=== PATIENT | male | born 1960 | race Caucasian/White ===

== ENCOUNTER → 2020-03-01 | Day surgery (SDC) | payer MEDICARE ==
[~2020-03-01] MED LIST: ACETAMINOPHEN TAB 325 MG TAB ONE; ALPRAZolam 0.25 MG TAB PO PRN; ASPIRIN 325 MG TAB PO STA; ASPIRIN 81 MG ONE; ASPIRIN 81 MG PO ONE; IOPAMIDOL-250 100ML BTL INTRAARTER ONE; IOPAMIDOL-250 50ML BTL INTRAARTER ONE; LIDOCAINE 1% INJ 10MG/ML (20 ML MDV) SQ ONE; MIDAZOLAM 2 MG/2 ML VIAL IVP ONE; SODIUM CHLORIDE 0.9% 1,000 ML IV ONE; SODIUM CHLORIDE 0.9% 1,000 ML IV SCH; SODIUM CHLORIDE 0.9% 1,000 ML in EMPTY BAG 1 BAG IV ONE; ZOLPIDEM 5 MG TAB PO PRN
[2020-03-01 09:45] VITALS: RESP 16
[2020-03-01 09:46] VITALS: TEMP 98.1
--- NOTE | 2020-03-01 11:27 | IR ---
EXAMINATION TYPE: IR angio abdominal w runoff DATE OF EXAM: 03/01/2020 CLINICAL HISTORY: Right foot ulcer. TECHNIQUE: Fluoroscopy. COMPARISON: None. FINDINGS: Fluoroscopic guidance was provided during , angiogram with runoff procedure performed by Cyndee Heller. A total of 2.6 minute of fluoroscopic time was utilized during the procedure and 126 spot i mages are acquired. Images show right-sided groin access with angiogram and runoff. Please refer to p emely note for further details if necessary. IMPRESSION: As Above.
--- NOTE | 2020-03-01 12:01 | AN ---
ANGIOGRAPHY REPORT AORTOGRAM WITH RUNOFF: DATE OF SERVICE: 03/01/2020 PERFORMING PHYSICIAN: Shaun Heller MD. PROCEDURE PERFORMED: 1. An abdominal aortogram. 2. Bilateral lower extremities runoff. 3. Selective right common femoral artery angiogram. INDICATION: This is a 59-year-old gentleman with history of peripheral arterial disease and prior angioplasty was performed on the right leg with unknown details with the only details known. The right iliac stenting was struggling with critical limb ischemia of the right leg. He was seen in the office recently where he was referred by Dr. Timmons and he does have a nonhealing ulcer involving the right foot. Because of that, an aortogram with runoff was advised. APPROACH: Right common femoral artery. COMPLICATION: None. LEVEL OF SEDATION: Moderate with sedation length of 18 minutes. PROCEDURE DESCRIPTION: After obtaining an informed consent, the patient was brought to the cardiac clinical lab assistant. The right common femoral artery was cannulated using micropuncture technique under ultrasound guidance, the micropuncture wire passed easily, then I placed a 5-Turkmen sheath. An abdominal aortogram and bilateral lower extremities runoff performed using 5-Turkmen pigtail catheter which was initially placed at the level of the renal arteries then it was pulled into above the bifurcation of the aorta to right and left common iliac arteries. The procedure was completed without any complication. SELECTIVE PERIPHERAL ANGIOGRAM: 1. The aorta appeared to be angiographically normal. 2. Renal arteries: The right and left renal arteries are angiographically normal. 3. Common iliac arteries: The right common iliac artery is stented and the stent is patent and the left common iliac artery appeared to be angiographically normal. 4. Internal iliac arteries: Both are patent. 5. External iliac arteries: Both are patent. 6. Common femoral arteries: Both appeared to be normal. 7. Profunda: Both profunda are patent. 8. SFA: The right SFA is occluded from the ostium all the way to the popliteal. The left SFA appeared to have mild disease only. 9. Below the knee: There are 3 vessel runoff below the knee bilaterally. CONCLUSION: 1. Patent stent in the right common iliac artery. 2. Occluded right SFA on long segment extends from the ostium all the way to the popliteal. 3. Three vessel runoff below the knee bilaterally. POSTPROCEDURE MANAGEMENT: OUTBOUND SALES EXECUTIVE of the right SFA. MMODL / IJN: [id number] /
[2020-03-01 16:37] VITALS: BP 135/60; PULSE 78
== END ==
LOC: CATHCVL 09:24
PROVIDERS: ATTEND Internal Medicine Interventional Cardiology
DX: I70.235 Atherosclerosis of native arteries of right leg with ulceration of other part of foot (principal); I70.213 Atherosclerosis of native arteries of extremities with intermittent claudication, bilateral legs; I10 Essential (primary) hypertension; E78.5 Hyperlipidemia, unspecified; F17.210 Nicotine dependence, cigarettes, uncomplicated; Z79.82 Long term (current) use of aspirin; Z79.899 Other long term (current) drug therapy
CPT/HCPCS: 36200; 75625; 75716; 76937; C1769 ×5; C1894; J2250; J2001; Q9966 ×2

== ENCOUNTER → 2020-03-16 | Day surgery (SDC) | payer MEDICARE ==
[2020-03-14 15:06] VITALS: BMI 21.5
[~2020-03-16] MED LIST changes: -ACETAMINOPHEN TAB 325 MG TAB ONE; -ASPIRIN 81 MG ONE; -ASPIRIN 81 MG PO ONE; -IOPAMIDOL-250 100ML BTL INTRAARTER ONE; -IOPAMIDOL-250 50ML BTL INTRAARTER ONE; -LIDOCAINE 1% INJ 10MG/ML (20 ML MDV) SQ ONE; -MIDAZOLAM 2 MG/2 ML VIAL IVP ONE; -SODIUM CHLORIDE 0.9% 1,000 ML IV ONE; -SODIUM CHLORIDE 0.9% 1,000 ML IV SCH
== END ==
LOC: CATHCVL 11:53
PROVIDERS: ATTEND Internal Medicine Interventional Cardiology
DX: I70.211 Atherosclerosis of native arteries of extremities with intermittent claudication, right leg (principal); Z53.9 Procedure and treatment not carried out, unspecified reason

== ENCOUNTER 2020-03-23 10:09 | Day surgery (SDC) | payer MEDICARE ==
[2020-03-21 11:30] VITALS: BMI 22.3
[~2020-03-23 10:09] MED LIST changes: +ASPIRIN 325 MG TAB PO ONE; -ASPIRIN 325 MG TAB PO STA; -ZOLPIDEM 5 MG TAB PO PRN
[2020-03-23] MEDS ORDERED: SODIUM CHLORIDE 0.9% 1,000 ML IV ONE (10:36)
[2020-03-23 10:46] LABS: Basophils % (A) 1 %; Eosinophils % (A) 1 %; HCT 36.9 % (39.0-53.0); HGB 12.2 gm/dL (13.0-17.5); Lymphocytes % (A) 17 %; MCH 29.8 pg (25.0-35.0); MCV 90.3 fL (80.0-100.0); Mean Platelet Volume 6.9; Monocytes # (A) 0.4 k/uL (0-1.0); Monocytes % (A) 6 %; Neutrophils # (A) 4.6 k/uL (1.3-7.7); Neutrophils % (A) 75 %; Platelet Count 283 k/uL (150-450); RBC 4.09 m/uL (4.30-5.90); RDW 13.3 % (11.5-15.5); WBC 6.2 k/uL (3.8-10.6)
[2020-03-23] MEDS ORDERED: SODIUM CHLORIDE 0.9% 500 ML 500 ML with niCARdipine 6.25 MG, NITROGLYCERIN-D5W PMX 0.05... IV ONE ×8 (11:00→13:51)
[2020-03-23] MEDS ORDERED: MIDAZOLAM 2 MG/2 ML VIAL IV ONE (12:03)
[2020-03-23] MEDS ORDERED: HYDROmorphone 0.5 MG/0.5 ML SYRINGE IVP ONE ×2 (12:03→12:28)
[2020-03-23] MEDS ORDERED: LIDOCAINE 1% INJ 10MG/ML (20 ML MDV) SQ ONE (12:04)
[2020-03-23] MEDS: HEPARIN SODIUM 1,000 UN/ML (10ML VL) IV ONE ×2 (12:10→13:01)
[2020-03-23] MEDS: MIDAZOLAM 2 MG/2 ML VIAL IV ONE ×2 (12:27→12:37)
[2020-03-23] MEDS: fentaNYL (PF) 50 MCG/ML 2 ML AMP IV ONE ×2 (12:58→13:41)
[2020-03-23] MEDS: HYDROmorphone 1 MG/ML 1 ML SYRINGE IVP ONE ×2 (13:47→14:40)
[2020-03-23] MEDS ORDERED: ETODOLAC 400 MG TAB PO PRN (14:57)
[2020-03-23] MEDS ORDERED: ALPRAZolam 0.5 MG TAB PO PRN (14:57)
[2020-03-23] MEDS ORDERED: SODIUM CHLORIDE 0.9% 1,000 ML in EMPTY BAG 1 BAG IV SCH (15:00)
[2020-03-23] MEDS ORDERED: INTERFERON BETA 30 MCG/0.5 ML SQ SCH (15:00)
[2020-03-23] MEDS ORDERED: CLOPIDOGREL 75 MG TAB PO ONE (15:03)
--- NOTE | 2020-03-23 16:35 | LTR ---
March 23, 2020 To: Dr. Timmons Regarding: Ras Rowland (date of 62) [address] Dr. Timmons, MrClare Rowland underwent today successful balloon angioplasty of the right femoral artery and right popliteal with an excellent angiographic result and without any complication. I want to thank you for allowing me to participate in his care. Please do not hesitate to call if any question or concern. Sincerely, Shaun Heller M.D. KB / VERÓNICA: [id number] /
[2020-03-23] MEDS ORDERED: ONDANSETRON 4 MG/2 ML VIAL IVP PRN (17:55)
[2020-03-23] MEDS: GABAPENTIN 300 MG CAP PO SCH ×2 (19:01→19:58)
[2020-03-23] MEDS: BACLOFEN 10 MG TAB PO SCH ×2 (19:01→19:58)
[2020-03-23 19:56] VITALS: RESP 18
--- NOTE | 2020-03-23 20:35 | PCN ---
PROCEDURE NOTE PERCUTANEOUS PERIPHERAL INTERVENTION: DATE OF SERVICE: 03/23/2020 PERFORMING PHYSICIAN: Shaun Heller M.D. PROCEDURES PERFORMED: 1. Atherectomy of the right SFA and right popliteal using the orbital atherectomy device from [employer]. 2. Intravascular ultrasound (IVUS) of the right SFA and right popliteal and right common femoral artery. 3. Successful stenting of the proximal right SFA using a 7.0 x 60 mm Zilver PTX drug- coated stent with excellent angiographic results. 4. Successful balloon angioplasty of the right SFA in the mid and distal portions using a 6 x 250 mm AngioSculpt balloon with an excellent angiographic result. 5. Successful deployment of the In.Pact device in the right popliteal. 6. Angiogram of the right SFA and right popliteal as well as right anterior tibial artery and right common iliac artery and left common femoral artery. INDICATION: This is a very pleasant 59-year-old gentleman with history of multiple sclerosis as well as history of peripheral arterial disease who underwent angioplasty of the right iliac artery as well as right SFA in the past. Recently he was experiencing severe right leg pain and also evidence of critical limb ischemia with nonhealing ulcers involving the right foot. He underwent an angiogram which revealed occluded right SFA and right popliteal on long segments. He was brought today to undergo an intervention. APPROACH: Left common femoral artery as well as right anterior tibial artery. COMPLICATIONS: None. LEVEL OF SEDATION: Moderate, with sedation length of 169 minutes. PROCEDURE DESCRIPTION: After obtaining informed consent, the patient was brought to the cardiac stores laborer. Initially I accessed the left common femoral artery and I placed a 6-Moldovan 70 cm Raabe sheath. After that I was able to get the RIM catheter up and over, and then I was able to advance initially an 0.[address] the way to the right profunda. I attempted to advance the sheath to go up and over the 0.035 wire and over the 5-Moldovan RIM, but the sheath would not make the turn. I did exchange my sheath for an Steven sheath, and in spite of that I was unable to get the sheath to go up and over. So I ended up leaving the sheath in the left common femoral artery, but I was able to get up and over the 5-Moldovan 0.035 CXI catheter to be placed at the right common femoral artery to use it for angiogram and injection only. Subsequently I accessed the right anterior tibial artery using micropuncture technique under ultrasound guidance, and I placed a slender 5/6-Moldovan sheath there. After that I did start continuous infusion of cocktail consisting of heparin as well as verapamil as well as nitroglycerin. Using an 0.018 ventura-tipped Glidewire and an 0.018 Astato wire with the back-up support of an 0.018 CXI and then an 0.018 Quick Cross catheter, I was able to cross the chronic total occlusion in the right popliteal and right SFA. The wire was advanced all the way to the right common femoral artery. Subsequently the catheter was advanced all the way to the right common femoral artery. I did inject through the catheter to prove that I was in the true lumen. Subsequently I placed an 0.014 wire through the 0.018 CXI catheter, and the 0.014 wire was a Viper wire which was advanced all the way to the aorta. I did intravascular ultrasound (IVUS) of the right common femoral artery and right SFA and right popliteal to prove that I was in the true lumen all the way. After that I did an atherectomy of the right SFA and the right popliteal using the orbital atherectomy device from [employer]. I did use a 1.5 mm solid kasey. After that I did balloon angioplasty, initially using a 5 mm balloon. After that I used a 6 mm Chocolate balloon. The following angiogram showed two areas of concern, the first one in the very ostial/proximal right SFA and the second one by the distal cap by the right popliteal. The rest of the areas in the SFA and popliteal looked good with balloon angioplasty. Because of that I decided to stent the ostial/proximal right SFA and do balloon angioplasty of the rest of the SFA and popliteal. I deployed a 7 x 60 mm Zilver PTX drug-coated stent in the ostial/proximal SFA, where the stent was positioned under fluoroscopic guidance and deployed under fluoroscopic guidance. The stent was post-dilated using a 6 mm balloon. In the mid SFA and the proximal right popliteal I did balloon angioplasty using an In.Pact drug-coated balloon where the balloon was inflated under 5 atmospheres for 3 minutes. The following angiogram showed excellent angiographic results. At the distal cap, injection from the sheath in the right anterior tibial artery showed what seemed to be flow-limiting dissection. I was able to tackle that using the In.Pact device with deployment of 4 clips. I post-dilated that using a 5 mm balloon with the following angiogram showing great angiographic results. Because I struggled going up and over from the left groin to the right groin, I wanted to check the stent in the right iliac artery. I did an angiogram with injection from the sheath in the left groin, and that showed that the stent is open and the stent seemed to be slightly undersized. The patient does have good femoral pulse on the right side. I decided to stop at this point and watch his symptoms. I did exchange the long sheath for a short sheath at the left groin using an 0.035 Glidewire. Then I did pull the pedal sheath. The procedure was completed without any complication. POST-PROCEDURE MANAGEMENT: 1. Dual anti-platelet therapy. 2. Surveillance duplex ultrasound study. 3. Follow up with the patient. MMCHELSI / KIRSTIEN: [id number] /
[2020-03-23] MEDS ORDERED: PRAVASTATIN SODIUM 40 MG TAB PO SCH (21:00)
[2020-03-23] MEDS: Acetaminophen-Codeine 300-30mg TAB PO PRN (21:50)
[2020-03-24] MEDS: GABAPENTIN 300 MG CAP PO SCH ×3 (02:42→14:49)
[2020-03-24] MEDS: Acetaminophen-Codeine 300-30mg TAB PO PRN ×2 (08:23→14:49)
[2020-03-24] MEDS: BACLOFEN 10 MG TAB PO SCH ×2 (08:23→14:50)
[2020-03-24 09:00] LABS: Basophils % (A) 0 %; Eosinophils % (A) 0 %; HCT 37.7 % (39.0-53.0); HGB 12.1 gm/dL (13.0-17.5); Lymphocytes # (A) 0.7 k/uL (1.0-4.8); Lymphocytes % (A) 5 %; MCH 29.8 pg (25.0-35.0); MCHC 32.1 g/dL (31.0-37.0); MCV 92.8 fL (80.0-100.0); Mean Platelet Volume 6.7; Monocytes # (A) 0.6 k/uL (0-1.0); Monocytes % (A) 4 %; Neutrophils # (A) 12.3 k/uL (1.3-7.7); Neutrophils % (A) 89 %; Platelet Count 273 k/uL (150-450); RBC 4.06 m/uL (4.30-5.90); WBC 13.8 k/uL (3.8-10.6)
[2020-03-24] MEDS ORDERED: hydroCHLOROthiazide 25 MG TAB PO SCH (09:00)
[2020-03-24] MEDS ORDERED: CLOPIDOGREL 75 MG TAB PO SCH (09:00)
[2020-03-24] MEDS ORDERED: MULTIVITAMINS, THERA 1 EACH TAB PO SCH (09:00)
[2020-03-24] MEDS ORDERED: ASPIRIN 81 MG PO SCH (09:00)
[2020-03-24] MEDS ORDERED: lisinopriL 5 MG TAB PO SCH (09:00)
[2020-03-24] MEDS ORDERED: FERROUS SULFATE 325 MG TAB PO SCH (09:00)
[2020-03-24 09:49] LABS: African American GFR (CKD) >90 (>60 ml/min/1.73 sqM); Anion Gap 11 mmol/L; Blood Urea Nitrogen 13 mg/dL (9-20); Calcium 9.6 mg/dL (8.4-10.2); Carbon Dioxide 26 mmol/L (22-30); Chloride 100 mmol/L (98-107); Glucose 107 mg/dL (74-99); Non-African American GFR(CKD) >90 (>60 ml/min/1.73 sqM); Potassium 3.6 mmol/L (3.5-5.1); Sodium 137 mmol/L (137-145)
[2020-03-24 10:20] VITALS: TEMP 98.1
[2020-03-24] MEDS ORDERED: COLLAGENASE 250 UNIT/GM OINTMENT 30 GM TUBE TOPICAL SCH (12:00)
--- NOTE | 2020-03-24 12:05 | P.CONS ---
History of Present Illness - Reason for Consult Consult date: 03/24/20 wound care - History of Present Illness This is a 59-year-old patient being seen [facility] [address] for nonhealing ulcerations to the right medial leg and right dorsal lateral foot. Patient states that the ulcerations have been there for a few weeks. He recently underwent a PTCA of the right femoral and right popliteal arteries. Patient has been seen by wound care at [facility] in the past. Due to a nonhealing ulceration to the right anterior leg. 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 Patient utilizes a walker. he is former smoker quit approximately 50 years ago. Review of Systems Review Of Systems: Constitutional: No fever, no chills, no night sweats. No weight change. No weakness, fatigue or lethargy. No daytime sleepiness. Integumentary:reports wounds, no lesions. No rash or pruritus. No unusual bruising. No change in hair or nails. Past Medical History Past Medical History: GERD/Reflux, Hyperlipidemia, Hypertension, Skin Disorder Additional Past Medical History / Comment(s): SEE DR. VICTOR MANUEL Kramer & P. PATIENT STATES HE HAS MULTIPLE OPEN SORES ON RIGHT LEG/FOOT, HAS PAIN IN RIGHT LEG AND LEFT FOOT, SWELLING IN LEFT FOOT (HAS WRAPPED IT). HAS HAD TREATMENT AT [facility] FOR RIGHT LEG WOUND IN THE PAST. Muscular Sclerosis, right leg paralyzed knee down, USES WALKER. History of Any Multi-Drug Resistant Organisms: None Reported Past Surgical History: Tonsillectomy Additional Past Surgical History / Comment(s): right leg angioplasty. (L) shoulder surgery, collar bone surgery. aortogram w/runoff 03/01/20 Past Anesthesia/Blood Transfusion Reactions: No Reported Reaction Smoking Status: Former smoker - Past Family History Mother Family Medical History: Congestive Heart Failure (CHF), COPD, Diabetes Mellitus Father Additional Family Medical History / Comment(s): pancreatitis Medications and Allergies Home Medications Medication Instructions Recorded Confirmed Type ALPRAZolam [Xanax] 0.5 mg PO BID PRN 02/19/16 03/23/20 History Aspirin EC [Ecotrin Low Dose] 81 mg PO DAILY 02/19/16 03/23/20 History Baclofen 10 mg PO TID 02/19/16 03/23/20 History Diclofenac Sodium [Voltaren] 75 mg PO BID PRN 02/19/16 03/23/20 History Ferrous Sulfate [Feosol] 325 mg PO DAILY 02/19/16 03/21/20 History Gabapentin [Neurontin] 600 mg PO 5XD 02/19/16 03/23/20 History Multivitamins, Thera [Multivitamin 1 tab PO DAILY 02/19/16 03/21/20 History (formulary)] Pravastatin Sodium [Pravachol] 40 mg PO HS 02/19/16 03/23/20 History hydroCHLOROthiazide 25 mg PO QAM 02/19/16 03/23/20 History lisinopriL [Zestril] 5 mg PO QAM 02/19/16 03/23/20 History Interferon Beta-1A [Avonex 30 MCG 1 dose SQ MOWEFR 02/25/20 03/23/20 History Pen] Clopidogrel [Plavix] 75 mg PO DAILY #90 tab 03/24/20 Rx Allergies Allergy/AdvReac Type Severity Reaction Status Date / Time Penicillins Allergy Unknown Verified 03/23/20 10:48 Childhood Sulfa (Sulfonamide AdvReac Rash/Hives Verified 03/23/20 10:48 Antibiotics) Physical Exam Vitals: Vital Signs Temp Pulse Resp BP BP Pulse Ox 03/24/20 08:00 98.1 F 110 H 18 144/76 96 03/24/20 03:54 98.6 F 79 17 145/77 96 03/24/20 00:00 98.0 F 124 H 16 134/84 96 03/23/20 21:53 133/62 03/23/20 21:38 136/76 03/23/20 21:31 123 H 115/93 03/23/20 21:29 123 H 132/71 03/23/20 21:26 124/69 03/23/20 20:00 97.9 F 18 144/64 155/80 95 03/23/20 19:54 97.7 F 18 138/59 96 03/23/20 18:43 20 150/61 136/81 03/23/20 17:43 18 164/71 163/86 03/23/20 17:30 20 03/23/20 16:43 12 161/71 133/77 03/23/20 16:13 10 L 143/63 142/77 03/23/20 16:00 14 144/68 142/79 03/23/20 15:43 12 127/55 130/76 97 03/23/20 15:30 97.2 F L 8 L 127/52 98 03/23/20 15:28 12 Intake and Output 03/23/20 03/24/20 03/24/20 22:59 06:59 14:59 Intake Total 225 236 Output Total 1200 625 350 Balance -975 -625 -114 Intake: Intake, IV Titration 225 Amount Sodium Chloride 0.9% 1, 225 000 ml In Empty Bag 1 bag @ 75 mls/hr IV .[id number] YOVANI Rx#:[id number] Oral 236 Output: Urine 1200 625 350 Other: Voiding Method Indwelling Catheter Indwelling Catheter Urinal # Voids 1 Weight 87.5 kg 86.2 kg Physical exam: General Appearance: Alert, cooperative, no distress, appears stated age. Skin: nonhealing full-thickness ulceration to the right medial lower extremity. Measuring approximately 8 x 6 x 0.2 cm with significant amount of slough and exudate noted.. No granulation seen within the wound bed. Wound edge appears attached to the wound base. No tunneling or undermining noted. Significant amount of serous drainage. Right dorsal and lateral foot ulceration measures approximately 12 I 8 x 0.2 cm with slough seen throughout the ulceration no granulation seen within the wound bed. Wound edges are attached to the wound base. Large amount of serous drainage.all other Skin color, texture, tugor normal, no rashes or lesions. 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 Change dressing daily. Discussed with patient the importance of following up with wound care. He will call [facility] for an appointment. However if he is unable to get and he will seek treatment within our facility. Thank for the consultation any questions please contact the wound care center DNP note has been reviewed and discussed with Dr. Sky and the impression and plan of care has been directed as dictated.
--- NOTE | 2020-03-24 12:47 | DS ---
DISCHARGE SUMMARY ADMISSION DATE: 03/23/2020 DISCHARGE DATE: 03/24/2020 HISTORY: Is a pleasant 59-year-old gentleman who underwent yesterday a very complex procedure of opening the right SFA and right popliteal from a pedal and groin approach. The procedure ended with an excellent angiographic results and without any complication. The patient is going to be discharged home on dual anti-platelet therapy along with statin. I am going to follow up with the patient next week in the office. MMCHELSI / KIRSTIEN: [id number] /
--- NOTE | 2020-03-24 14:15 | IR ---
Fluoroscopy HISTORY: Peripheral vascular occlusive disease 57.7 minutes fluoroscopy time supplied to the referring clinician. 613 intraoperative C-arm images d ocument the procedure. See dictated report from cardiology.
[2020-03-24 14:43] VITALS: BP 131/72; PULSE 92
== END 2020-03-24 16:35 | disposition home health service (06) ==
LOC: CATHCVL 10:09 → 3SCARD 14:49 → CATHCVL 03-24 16:35
PROVIDERS: ATTEND Internal Medicine Interventional Cardiology
DX: I70.235 Atherosclerosis of native arteries of right leg with ulceration of other part of foot (principal); L97.519 Non-pressure chronic ulcer of other part of right foot with unspecified severity; I70.233 Atherosclerosis of native arteries of right leg with ulceration of ankle; L97.319 Non-pressure chronic ulcer of right ankle with unspecified severity; I70.211 Atherosclerosis of native arteries of extremities with intermittent claudication, right leg; K21.9 Gastro-esophageal reflux disease without esophagitis; I10 Essential (primary) hypertension; G35 Multiple sclerosis; F17.210 Nicotine dependence, cigarettes, uncomplicated; Z98.890 Other specified postprocedural states; Z82.49 Family history of ischemic heart disease and other diseases of the circulatory system; Z83.3 Family history of diabetes mellitus; Z82.5 Family history of asthma and other chronic lower respiratory diseases; Z79.82 Long term (current) use of aspirin; Z79.899 Other long term (current) drug therapy; Z88.0 Allergy status to penicillin; Z88.2 Allergy status to sulfonamides
CPT/HCPCS: 37227; 85347; 37252; 80048; 85025 ×2; C1894 ×3; C1714; C1769 ×8; C1725 ×4; C1887; C1753; C1874; C2623; C1876; J2250; J1644 ×2; J2405; J2001; J3010; J1170 ×2

== ENCOUNTER → 2020-04-08 | Outpatient (CLI) | payer MEDICARE ==
--- NOTE | 2020-04-08 13:25 | US ---
EXAMINATION TYPE: US venous doppler duplex LE RT DATE OF EXAM: 04/08/2020 12:08 PM COMPARISON: NONE CLINICAL HISTORY: 59-year-old male I82.441 ACUTE EMBOLISM AND THROMBOSIS OF RT TIBIAL VEIN. SIDE PERFORMED: Right TECHNIQUE: The lower extremity deep venous system is examined utilizing real time linear array sonog mirlande with graded compression, doppler sonography and color-flow sonography. FINDINGS: VESSELS IMAGED: Deep Femoral Vein Greater Saphenous Vein * Femoral Vein Popliteal Vein Proximal Calf Veins (* superficial vessels) Right Leg: Negative for DVT Multiple enlarged nodes right groin. Extensive edema right lower leg. IMPRESSION: 1. No evidence for DVT within the right lower extremity imaged from the groin to the upper calf. 2. Prominent subcutaneous soft tissue swelling throughout the right lower extremity. 3. Mildly enlarged lymph nodes within the right inguinal region measuring up to 3.1 x 1.3 cm. Probabl y reactive/post inflammatory. Recommend clinical follow-up. If any enlarging nodes are detected, tiss ue sampling can be considered.
== END | disposition home or self-care (01) ==
LOC: RADUSWWP 11:47
PROVIDERS: ATTEND Podiatrist
DX: M79.89 Other specified soft tissue disorders (principal); R59.9 Enlarged lymph nodes, unspecified; I82.441 Acute embolism and thrombosis of right tibial vein; I73.9 Peripheral vascular disease, unspecified; G35 Multiple sclerosis; I10 Essential (primary) hypertension; L97.512 Non-pressure chronic ulcer of other part of right foot with fat layer exposed; L97.812 Non-pressure chronic ulcer of other part of right lower leg with fat layer exposed

== ENCOUNTER → 2020-05-13 | Outpatient (CLI) | payer MEDICARE ==
[2020-05-13 11:46] LABS: Basophils % (A) 1 %; Eosinophils # (A) 0.1 k/uL (0-0.7); Eosinophils % (A) 1 %; HCT 33.7 % (39.0-53.0); HGB 11.3 gm/dL (13.0-17.5); Lymphocytes # (A) 0.9 k/uL (1.0-4.8); Lymphocytes % (A) 16 %; MCH 30.1 pg (25.0-35.0); MCHC 33.5 g/dL (31.0-37.0); MCV 89.7 fL (80.0-100.0); Mean Platelet Volume 6.6; Monocytes # (A) 0.3 k/uL (0-1.0); Monocytes % (A) 6 %; Neutrophils # (A) 4.3 k/uL (1.3-7.7); Neutrophils % (A) 75 %; Platelet Count 245 k/uL (150-450); RBC 3.75 m/uL (4.30-5.90); RDW 13.4 % (11.5-15.5); WBC 5.7 k/uL (3.8-10.6)
[2020-05-13 12:01] LABS: African American GFR (CKD) >90 (>60 ml/min/1.73 sqM); Anion Gap 5 mmol/L; Blood Urea Nitrogen 25 mg/dL (9-20); Carbon Dioxide 30 mmol/L (22-30); Chloride 99 mmol/L (98-107); Non-African American GFR(CKD) >90 (>60 ml/min/1.73 sqM); Potassium 4.4 mmol/L (3.5-5.1); Sodium 134 mmol/L (137-145)
== END | disposition home or self-care (01) ==
LOC: LABPAT 11:05
PROVIDERS: ATTEND Surgery
DX: Z01.818 Encounter for other preprocedural examination (principal); I70.233 Atherosclerosis of native arteries of right leg with ulceration of ankle; I70.235 Atherosclerosis of native arteries of right leg with ulceration of other part of foot
CPT/HCPCS: 36415; 80051; 82565; 84520; 85025

== ENCOUNTER 2020-05-16 06:16 | Day surgery (SDC) | payer MEDICARE ==
[~2020-05-16 06:16] MED LIST changes: -ALPRAZolam 0.25 MG TAB PO PRN; -ASPIRIN 325 MG TAB PO ONE; +CLINDAMYCIN 600 MG in DEXTROSE 5% IN WATER 50 ML IVPB PRN; +DEXAMETHASONE SOD PHOSPHATE 4 MG/ML 1 ML VIAL IV ONE; +LACTATED RINGERS 1,000 ML IV SCH; +ONDANSETRON 4 MG/2 ML VIAL IVP ONE; -SODIUM CHLORIDE 0.9% 1,000 ML in EMPTY BAG 1 BAG IV ONE
[2020-05-16] MEDS ORDERED: MIDAZOLAM 2 MG/2 ML VIAL ONE (07:23)
[2020-05-16] MEDS ORDERED: SUCCINYLCHOLINE CHLORIDE 100 MG/5 ML SYR IV ONE (07:23)
[2020-05-16] MEDS ORDERED: LIDOCAINE 1% INJ 10MG/ML (20 ML MDV) ONE (07:23)
[2020-05-16] MEDS ORDERED: PROPOFOL 10 MG/ML 20 ML VIAL IV ONE (07:23)
[2020-05-16] MEDS ORDERED: KETOROLAC 15 MG/ML 1 ML VIAL ONE (07:23)
[2020-05-16] MEDS ORDERED: fentaNYL (PF) 50 MCG/ML 2 ML AMP ONE (07:23)
[2020-05-16] MEDS ORDERED: ALPRAZolam 0.5 MG TAB PO PRN (08:31)
[2020-05-16] MEDS ORDERED: DICLOFENAC SODIUM 75 MG PO PRN (08:31)
--- NOTE | 2020-05-16 08:31 | P.OP ---
Date of Procedure: 05/16/20 Preoperative Diagnosis: Multiple venous ulcerations right lower extremity. Postoperative Diagnosis: Multiple venous ulcerations right lower extremity. Wound #1 measures 27 x 6 cm extending from the medial foot across the dorsum of foot to the posterior lateral aspect of the foot. Wound #2 measures 1.5 x 1.5 cm at the lateral aspect of the fifth metatarsal head. #3 wound along the medial aspect of the leg measuring 15 x 10.5 cm. #4 located in the upper calf area measuring 4 x 4 centimeters. Procedure(s) Performed: #1 Excisional debridement of skin and subcutaneous tissues utilizing curet. #2 application of Unna boot right lower extremity. Implants: None Anesthesia: TRESSA Surgeon: Saurabh Garibay Estimated Blood Loss (ml): 5 Urine output (ml): 0 Pathology: none sent Condition: stable Disposition: no change Indications for Procedure: Patient is a 60-year-old male who presented last week to the office complaining of greater than 1 year history of multiple nonhealing ulcerations of the right lower extremity. These ulcerations are draining a significant amount of serous fluid. He has undergone multiple percutaneous revascularizations of the right lower extremity with no improvement of his symptoms. Physical examination demonstrated wounds and history consistent with venous ulcerations. An Unna boot was placed at his initial office visit 4 days prior and now the patient presents for debridement of the wounds of the right lower extremity. Description of Procedure: Patient was brought to the [facility] and placed in the supine position Mr. general inhalational anesthesia delivered by the department of anesthesiology. Patient received intravenously administered prophylactic antibiotics in the perioperative phase. Patient's right lower extremity was sterilely prepped and draped in usual manner. The wounds of the foot and lower extremity demonstrated heavy burden of fibrin and other nonviable tissue throughout. The wound edges were clean without evidence of undermining or tunneling. Utilizing a surgical scrub brush and eventually a curet the fibrinous tissue and other nonviable tissue was removed as best as possible. This revealed good granular tissue throughout a large portion of the wounds. Wound measurements are as given in the preoperative assessment. Once the wounds were to prided/cleaned as best as possible Adaptic was placed over all wounds and a little blue was then applied. Patient tolerated the procedure well and was taken to the recovery area in satisfactory and stable condition. It is anticipated the patient will need additional debridements and possible application of skin substitute to help expedite healing.
[2020-05-16 08:38] VITALS: TEMP 96.8
[2020-05-16] MEDS: HYDROmorphone 0.5 MG/0.5 ML SYRINGE IVP PRN ×2 (08:44→08:57)
[2020-05-16] MEDS ORDERED: INTERFERON BETA 30 MCG/0.5 ML SQ SCH (08:45)
[2020-05-16] MEDS ORDERED: hydroCHLOROthiazide 25 MG TAB PO SCH (09:00)
[2020-05-16] MEDS ORDERED: MULTIVITAMINS, THERA 1 EACH TAB PO SCH (09:00)
[2020-05-16] MEDS ORDERED: lisinopriL 5 MG TAB PO SCH (09:00)
[2020-05-16] MEDS ORDERED: NON FORMULARY DRUG (Aspirin Ec 81 MG Tablet.Dr) PO SCH (09:00)
[2020-05-16] MEDS ORDERED: BACLOFEN 10 MG TAB PO SCH (09:00)
[2020-05-16] MEDS ORDERED: FERROUS SULFATE 325 MG TAB PO SCH (09:00)
[2020-05-16] MEDS ORDERED: CLOPIDOGREL 75 MG TAB PO SCH (09:00)
[2020-05-16 09:15] VITALS: RESP 16
[2020-05-16] MEDS ORDERED: HYDROcodone/APAP 5-325MG 1 EACH TAB ONE (09:59)
[2020-05-16] MEDS ORDERED: HYDROcodone/APAP 5-325MG 1 EACH TAB PO ONE (10:00)
[2020-05-16 10:44] VITALS: PULSE 66
[2020-05-16 10:59] VITALS: BP 105/64
[2020-05-16] MEDS ORDERED: GABAPENTIN 600 MG PO SCH (11:00)
[2020-05-16] MEDS ORDERED: PRAVASTATIN SODIUM 40 MG TAB PO SCH (21:00)
== END 2020-05-16 11:04 | disposition home or self-care (01) ==
LOC: OR 06:16
PROVIDERS: ATTEND Surgery
DX: I70.233 Atherosclerosis of native arteries of right leg with ulceration of ankle (principal); L97.819 Non-pressure chronic ulcer of other part of right lower leg with unspecified severity; L97.519 Non-pressure chronic ulcer of other part of right foot with unspecified severity; L97.219 Non-pressure chronic ulcer of right calf with unspecified severity; G35 Multiple sclerosis; K21.9 Gastro-esophageal reflux disease without esophagitis; E78.5 Hyperlipidemia, unspecified; I10 Essential (primary) hypertension; I47.1 Supraventricular tachycardia; Z98.62 Peripheral vascular angioplasty status; Z86.718 Personal history of other venous thrombosis and embolism; Z87.891 Personal history of nicotine dependence; Z79.02 Long term (current) use of antithrombotics/antiplatelets; Z79.82 Long term (current) use of aspirin; Z79.899 Other long term (current) drug therapy; Z88.0 Allergy status to penicillin; Z88.2 Allergy status to sulfonamides; Z90.89 Acquired absence of other organs; Z98.890 Other specified postprocedural states; Z83.79 Family history of other diseases of the digestive system; Z83.3 Family history of diabetes mellitus; Z82.5 Family history of asthma and other chronic lower respiratory diseases; Z82.49 Family history of ischemic heart disease and other diseases of the circulatory system
CPT/HCPCS: 11042; 11045 ×16; J2250; J1100; J2405; J2001; J3010; J1885; J0330; J2704; J1170

== ENCOUNTER 2020-06-09 08:27 | Day surgery (SDC) | payer MEDICARE ==
[2020-06-03 15:28] VITALS: BMI 23.1
[~2020-06-09 08:27] MED LIST changes: -CLINDAMYCIN 600 MG in DEXTROSE 5% IN WATER 50 ML IVPB PRN; +LIDOCAINE 1% (10MG/ML) FOR IV START INTRADERMA PRN; +MIDAZOLAM 2 MG/2 ML VIAL IV PRN; +Pre Op ABX Message 1 EACH MISC MISCELLANE ONE
[2020-06-09] MEDS ORDERED: MIDAZOLAM 2 MG/2 ML VIAL ONE (10:07)
[2020-06-09] MEDS ORDERED: CLINDAMYCIN 150 MG/ML 4 ML VIAL ONE (10:07)
[2020-06-09] MEDS ORDERED: fentaNYL (PF) 50 MCG/ML 2 ML AMP ONE (10:07)
[2020-06-09] MEDS ORDERED: HYDROmorphone (PF) 1 MG/ML ONE (10:07)
[2020-06-09] MEDS ORDERED: PROPOFOL 10 MG/ML 20 ML VIAL IV ONE (10:07)
[2020-06-09] MEDS ORDERED: KETAMINE 10 MG/ML 20 ML VIAL ONE (10:07)
[2020-06-09] MEDS ORDERED: LIDOCAINE 1% INJ 10MG/ML (20 ML MDV) ONE (10:07)
--- NOTE | 2020-06-09 11:14 | P.OP ---
Date of Procedure: 06/09/20 Preoperative Diagnosis: Venous ulcerations right lower extremity (CEAP ). Post-thrombotic syndrome right lower extremity. Postoperative Diagnosis: Same. The 2 largest wound measured 25 x 5.5 cm while a second wound measures 25.5 x 12 cm in greatest measured dimensions. Procedure(s) Performed: Debridement multiple wounds right lower extremity utilizing curet. Application of compression dressing right lower extremity (Unna boot). Implants: None. Anesthesia: GETA Surgeon: Saurabh Garibay Estimated Blood Loss (ml): 5 Pathology: none sent Condition: stable Disposition: same day Indications for Procedure: Patient is a 61-year-old male with a history of bilateral lower extremity deep venous thrombosis which eventually and post-thrombotic syndrome. He developed multiple ulcerations in the lower extremities, much more significant on the right on the left. He had been treated in the past for arterial disease and his wounds did not respond for greater than one year time frame. Her surgical evaluation was consistent with venous insufficiency/post thrombotic syndrome. He underwent surgical debridement and has been treated on an outpatient basis with compression therapy which has resulted in significant healing of the wounds of his lower extremity. He presents today for re-debridement and application of compression dressing. Operative Findings: Wounds are all classified as stage II. Description of Procedure: Patient was brought to the [facility] and placed in supine position and administered general anesthesia delivered by the department anesthesiology. Patient received intravenously administered prophylactic IV antibiotics in the perioperative phase. Patient's lower extremity sterilely prepped and draped in usual manner. The right lower extremity had 2 very large wounds one measuring 25 x 5.5 cm extending from the dorsum of the foot posterior laterally along the calf while second measures 25.5 x 12 cm located along the medial aspect of the leg extending from the medial malleolus level proximally. Debridement with surgical scrub brush was followed by debridement with a curet of all nonviable/loose tissues. Excellent granular tissue was noted throughout the entirety of all wounds. An Unna boot was then placed on the right lower extremity. Attention was turned to the left lower extremity where a small wound along the lateral aspect of the left foot was identified. This measured 3.5 x 3 cm and extended partially through the skin level. This was too broad with a curet. Compression dressing was applied. Patient tolerated procedure well and was transferred to the recovery area in satisfactory and stable condition. Plan - Discharge Summary Discharge Rx Participant: No New Discharge Prescriptions: No Action ALPRAZolam [Xanax] 0.5 mg PO BID PRN PRN Reason: Anxiety Baclofen 10 mg PO TID hydroCHLOROthiazide 25 mg PO QAM lisinopriL [Zestril] 5 mg PO QAM Gabapentin [Neurontin] 600 mg PO 5XD Ferrous Sulfate [Feosol] 325 mg PO DAILY Pravastatin Sodium [Pravachol] 40 mg PO HS Diclofenac Sodium [Voltaren] 75 mg PO BID PRN PRN Reason: Pain Multivitamins, Thera [Multivitamin (formulary)] 1 tab PO DAILY Aspirin EC [Ecotrin Low Dose] 81 mg PO DAILY Interferon Beta-1A [Avonex 30 MCG Pen] 1 dose SQ MOWEFR Clopidogrel [Plavix] 75 mg PO DAILY #90 tab Discharge Medication List ALPRAZolam [Xanax] 0.5 mg PO BID PRN 02/19/16 [History] Aspirin EC [Ecotrin Low Dose] 81 mg PO DAILY 02/19/16 [History] Baclofen 10 mg PO TID 02/19/16 [History] Diclofenac Sodium [Voltaren] 75 mg PO BID PRN 02/19/16 [History] Ferrous Sulfate [Feosol] 325 mg PO DAILY 02/19/16 [History] Gabapentin [Neurontin] 600 mg PO 5XD 02/19/16 [History] Multivitamins, Thera [Multivitamin (formulary)] 1 tab PO DAILY 02/19/16 [History] Pravastatin Sodium [Pravachol] 40 mg PO HS 02/19/16 [History] hydroCHLOROthiazide 25 mg PO QAM 02/19/16 [History] lisinopriL [Zestril] 5 mg PO QAM 02/19/16 [History] Interferon Beta-1A [Avonex 30 MCG Pen] 1 dose SQ MOWEFR 02/25/20 [History] Clopidogrel [Plavix] 75 mg PO DAILY #90 tab 03/24/20 [Rx]
[2020-06-09 11:16] VITALS: TEMP 97.9
[2020-06-09] MEDS: HYDROmorphone 0.5 MG/0.5 ML SYRINGE IVP PRN ×2 (11:33→11:43)
[2020-06-09 12:21] VITALS: RESP 16
[2020-06-09 12:59] VITALS: BP 118/62; PULSE 73
--- NOTE | 2020-06-13 08:07 | CDI ---
Date: 06.13.20 CDS/Design Leader Name: Lily Smith Phone: If any questions, call Chrissy Sellers Game Designer/Creative Director at [phone] Patient Name: Ras Rowland Admit Date 06.09.20 Discharge Date: 06.09.20 ATTENTION: The [facility] Coding Staff appreciate your assistance in clarifying documentation. Please respond to the clarification below the line at the bottom and electronically sign. The [facility] Coding staff will review the response and follow-up if needed. Please note: Queries are made part of the Legal Health Record. If you have any questions, please contact the Game Designer/Creative Director. Dear Dr. Garibay In order to code to the greatest specificity and for the greatest reimbursement I need the following information: In your OP report you document that the debrided multiply ulcerative wounds on the right lower extremity, please specify the depth of the debridement: __skin only __Bone __Muscle/fascia __subcutaneous tissue Thank you for your kind consideration. ____subcutaneous MTDD
== END 2020-06-09 13:25 | disposition home or self-care (01) ==
LOC: OR 08:27
PROVIDERS: ATTEND Surgery
DX: I87.011 Postthrombotic syndrome with ulcer of right lower extremity (principal); L97.519 Non-pressure chronic ulcer of other part of right foot with unspecified severity; L97.219 Non-pressure chronic ulcer of right calf with unspecified severity; G35 Multiple sclerosis; K21.9 Gastro-esophageal reflux disease without esophagitis; E78.5 Hyperlipidemia, unspecified; I10 Essential (primary) hypertension; I47.1 Supraventricular tachycardia; Z88.0 Allergy status to penicillin; Z88.2 Allergy status to sulfonamides; Z87.891 Personal history of nicotine dependence; Z79.899 Other long term (current) drug therapy; Z79.82 Long term (current) use of aspirin; Z79.02 Long term (current) use of antithrombotics/antiplatelets; Z98.62 Peripheral vascular angioplasty status; Z98.890 Other specified postprocedural states; Z90.89 Acquired absence of other organs; Z86.718 Personal history of other venous thrombosis and embolism; Z83.79 Family history of other diseases of the digestive system; Z82.5 Family history of asthma and other chronic lower respiratory diseases; Z82.49 Family history of ischemic heart disease and other diseases of the circulatory system; Z83.3 Family history of diabetes mellitus
CPT/HCPCS: 11042; 11045 ×22; J2250; J1100; J2405; J2001; J3010; J1170 ×2; J2704

== ENCOUNTER 2020-12-19 10:06 | Inpatient (IN) | payer MEDICARE ==
[2020-12-19] MEDS ORDERED: MEROPENEM 2 GM in SODIUM CHLORIDE 0.9% 100 ML IVPB STA (11:18)
[2020-12-19] MEDS ORDERED: VANCOMYCIN IV PER PHARMACY 1 EACH MISC MISCELLANE PRN (11:20)
[2020-12-19] MEDS ORDERED: VANCOMYCIN 1,500 MG in SODIUM CHLORIDE 0.9% 250 ML IVPB STA (11:23)
--- NOTE | 2020-12-19 11:53 | ED ---
Extremity Problem HPI - General Chief complaint: Extremity Problem,Nontraumatic Stated complaint: foot infection Time Seen by Provider: 12/19/20 10:46 Source: patient, RN notes reviewed Mode of arrival: wheelchair Limitations: no limitations - History of Present Illness Initial comments: 60-year-old male presents emergency from it from wound care for left foot infection. Patient states he's been dealing with infections of his legs primarily his right but states that last week his developed infection, large open ulceration and blistering was seen by wound center today and sent over for admission. No fevers or chills patient has increasing pain. Denies being diabetic. - Related Data Home Medications Medication Instructions Recorded Confirmed ALPRAZolam [Xanax] 0.5 mg PO BID PRN 02/19/16 12/19/20 Aspirin EC [Ecotrin Low Dose] 81 mg PO DAILY 02/19/16 12/19/20 Baclofen 10 mg PO TID 02/19/16 12/19/20 Diclofenac Sodium [Voltaren] 75 mg PO BID PRN 02/19/16 12/19/20 Ferrous Sulfate [Feosol] 325 mg PO DAILY 02/19/16 12/19/20 Gabapentin [Neurontin] 600 mg PO 5XD 02/19/16 12/19/20 Multivitamins, Thera [Multivitamin 1 tab PO DAILY 02/19/16 12/19/20 (formulary)] Pravastatin Sodium [Pravachol] 40 mg PO HS 02/19/16 12/19/20 hydroCHLOROthiazide 50 mg PO DAILY 02/19/16 12/19/20 lisinopriL [Zestril] 5 mg PO DAILY 02/19/16 12/19/20 Extavia 1 dose INJ MOWEFR 12/19/20 12/19/20 Fluticasone Nasal [place] [Flonase 2 spr EA NOSTRIL DAILY PRN 12/19/20 12/19/20 Nasal [place]] HYDROcodone/APAP 5-325MG [[place] 1 tab PO Q6H PRN 12/19/20 12/19/20 5-325] Sulfamethox-Tmp 800-160Mg [Bactrim 1 tab PO Q12HR 12/19/20 12/19/20 DS 800-160 mg] Previous Rx's Medication Instructions Recorded Clopidogrel [Plavix] 75 mg PO DAILY #90 tab 03/24/20 Allergies Allergy/AdvReac Type Severity Reaction Status Date / Time Penicillins Allergy Unknown Verified 12/19/20 11:30 Childhood Sulfa (Sulfonamide AdvReac Rash/Hives Verified 12/19/20 11:30 Antibiotics) Review of Systems ROS Statement: Those systems with pertinent positive or pertinent negative responses have been documented in the HPI. ROS Other: All systems not noted in ROS Statement are negative. Past Medical History Past Medical History: GERD/Reflux, Hyperlipidemia, Hypertension, Skin Disorder, Supraventricular Tachycardia (SVT) Additional Past Medical History / Comment(s): [facility] V[facility]IT 05/06/20. PATIENT STATES HE HAS MULTIPLE OPEN SORES ON RIGHT LEG/FOOT, HAS PAIN IN RIGHT LEG AND LEFT FOOT, SWELLING IN LEFT FOOT (HAS WRAPPED IT). HAS HAD TREATMENT AT [facility] FOR RIGHT LEG WOUND IN THE PAST. Muscular Sclerosis, right leg paralyzed knee down, USES WALKER. History of Any Multi-Drug Resistant Organisms: None Reported Past Surgical History: Tonsillectomy Additional Past Surgical History / Comment(s): right leg angioplasty. (L) shoulder surgery, collar bone surgery. aortogram w/runoff 03/01/20 Past Anesthesia/Blood Transfusion Reactions: No Reported Reaction Past Psychological History: No Psychological Hx Reported Smoking Status: Former smoker Past Alcohol Use History: None Reported Past Drug Use History: None Reported - Past Family History Mother Family Medical History: Congestive Heart Failure (CHF), COPD, Diabetes Mellitus Father Additional Family Medical History / Comment(s): pancreatitis General Exam Limitations: no limitations General appearance: alert, in no apparent distress Head exam: Present: atraumatic, normocephalic, normal inspection Neck exam: Present: normal inspection, full ROM. Absent: tenderness, meningismus, lymphadenopathy Respiratory exam: Present: normal lung sounds bilaterally. Absent: respiratory distress, wheezes, rales, rhonchi, stridor Cardiovascular Exam: Present: regular rate, normal rhythm, normal heart sounds. Absent: systolic murmur, diastolic murmur, rubs, gallop, clicks Extremities exam: Present: other (Left leg, medial aspect along the ankle, heel there is deep ulceration, erythema, purulent drainage, blistering noted and anterior distal leg moderate swelling) Course Vital Signs 12/19/20 10:31 Temperature 98.6 F Pulse Rate 85 Respiratory 16 Rate Blood Pressure 114/64 O2 Sat by Pulse 97 Oximetry Medical Decision Making - Medical Decision Making 60-year-old presented for infection to his left foot and ankle region. Patient has deep infection, no exact evidence of cellulitis. Patient will be admitted for vascular evaluation. - Lab Data Result diagrams: 12/19/20 11:40 Lab Results 12/19/20 12/19/20 Range/Units 11:40 11:40 WBC 7.8 (3.8-10.6) k/uL RBC 3.37 L (4.30-5.90) m/uL Hgb 10.0 L (13.0-17.5) gm/dL Hct 30.7 L (39.0-53.0) % MCV 91.1 (80.0-100.0) fL MCH 29.6 (25.0-35.0) pg MCHC 32.5 (31.0-37.0) g/dL RDW 13.6 (11.5-15.5) % Plt Count 374 (150-450) k/uL MPV 7.3 Neutrophils % 78 % Lymphocytes % 13 % Monocytes % 6 % Eosinophils % 1 % Basophils % 0 % Neutrophils # 6.1 (1.3-7.7) k/uL Lymphocytes # 1.0 (1.0-4.8) k/uL Monocytes # 0.5 (0-1.0) k/uL Eosinophils # 0.1 (0-0.7) k/uL Basophils # 0.0 (0-0.2) k/uL Plasma Lactic Acid Shant[place] 0.9 (0.7-2.0) mmol/L Disposition Clinical Impression: Left leg cellulitis, Foot ulcer, left, Failure of outpatient treatment Disposition: ADMITTED IP TO THIS [facility] Condition: Fair Referrals: Mor Timmons MD [Primary Care Provider] - 1-2 days
[2020-12-19 11:59] LABS: Eosinophils % (A) 1 %; HCT 30.7 % (39.0-53.0); Lymphocytes % (A) 13 %; MCH 29.6 pg (25.0-35.0); MCHC 32.5 g/dL (31.0-37.0); MCV 91.1 fL (80.0-100.0); Mean Platelet Volume 7.3; Monocytes % (A) 6 %; Neutrophils % (A) 78 %; Platelet Count 374 k/uL (150-450); RBC 3.37 m/uL (4.30-5.90); RDW 13.6 % (11.5-15.5); WBC 7.8 k/uL (3.8-10.6)
[2020-12-19 12:00] LABS: Basophils % (A) 0 %; Eosinophils # (A) 0.1 k/uL (0-0.7); Monocytes # (A) 0.5 k/uL (0-1.0); Neutrophils # (A) 6.1 k/uL (1.3-7.7)
[2020-12-19 12:21] LABS: ALT 24 U/L (4-49); AST 28 U/L (17-59); African American GFR (CKD) >90 (>60 ml/min/1.73 sqM); Albumin 3.7 g/dL (3.5-5.0); Alkaline Phosphatase 178 U/L (38-126); Anion Gap 11 mmol/L; Blood Urea Nitrogen 26 mg/dL (9-20); Calcium 9.4 mg/dL (8.4-10.2); Carbon Dioxide 24 mmol/L (22-30); Chloride 103 mmol/L (98-107); Glucose 101 mg/dL (74-99); Non-African American GFR(CKD) >90 (>60 ml/min/1.73 sqM); Potassium 4.5 mmol/L (3.5-5.1); Sodium 138 mmol/L (137-145); Total Bilirubin 0.3 mg/dL (0.2-1.3); Total Protein 6.7 g/dL (6.3-8.2)
--- NOTE | 2020-12-19 12:33 | XR ---
EXAMINATION TYPE: XR ankle complete LT DATE OF EXAM: 12/19/2020 COMPARISON: NONE HISTORY: 60-year-old male infection and open wound, pain TECHNIQUE: 3 views FINDINGS: Large ulcer along the posteromedial aspect of the ankle. No discrete underlying bony destruction or p eriostitis is identified at this time. Ankle mortise is congruent. Generalized soft tissue swelling. Talar dome is intact. Moderate sized plantar heel spur. IMPRESSION: Generalized soft tissue swelling with a large ulcer along the posteromedial aspect of the ankle. No d iscrete radiographic evidence for osteomyelitis at this time.
[2020-12-19 12:34] LABS: C Reactive Protein 21.4 mg/dL (<1.0)
[2020-12-19] MEDS ORDERED: ONDANSETRON 4 MG/2 ML VIAL IVP PRN (12:35)
[2020-12-19] MEDS ORDERED: NALOXONE 0.4 MG/ML 1 ML VIAL IV PRN (12:35)
[2020-12-19] MEDS ORDERED: ACETAMINOPHEN TAB 325 MG TAB PO PRN (12:35)
[2020-12-19] MEDS: HYDROmorphone 0.5 MG/0.5 ML SYRINGE IVP PRN ×3 (14:19→22:34)
--- NOTE | 2020-12-19 16:38 | P.GSCN ---
History of Present Illness Consult date: 12/19/20 Reason for Consult: left lower extremity wound History of present illness: This is a 60-year-old white male who presented to the emergency department from the wound center for possible left lower extremity wound infection. past medical history of venous stasis and lower extremity wounds, hyperlipidemia, hypertension, GERD, SVT. He has been following with [facility]. [facility] for venous stasis ulcerationsand underwent debridement in the past of the right lower extremity. The patient denies any fevers or chills. He has multiple blisters on his left lower extremity with swelling. He states that he had a wrap on his leg and when he took it off there was a wound on the medial aspect of the left ankle. he currently denies any shortness of breath, chest pain, abdominal pain, nausea, or vomiting. Review of Systems A 14 point review of systems was completed all pertinent positives and negatives as stated in the HPI. Past Medical History Past Medical History: GERD/Reflux, Hyperlipidemia, Hypertension, Skin Disorder, Supraventricular Tachycardia (SVT) Additional Past Medical History / Comment(s): [facility] VISIT 05/06/20. PATIENT STATES HE HAS MULTIPLE OPEN SORES ON RIGHT LEG/FOOT, HAS PAIN IN RIGHT LEG AND LEFT FOOT, SWELLING IN LEFT FOOT (HAS WRAPPED IT). HAS HAD TREATMENT AT [facility] FOR RIGHT LEG WOUND IN THE PAST. Muscular Sclerosis, right leg paralyzed knee down, USES WALKER. History of Any Multi-Drug Resistant Organisms: None Reported Past Surgical History: Tonsillectomy Additional Past Surgical History / Comment(s): right leg angioplasty. (L) shoulder surgery, collar bone surgery. aortogram w/runoff 03/01/20 Past Anesthesia/Blood Transfusion Reactions: No Reported Reaction Past Psychological History: No Psychological Hx Reported Smoking Status: Former smoker Past Alcohol Use History: None Reported Past Drug Use History: None Reported - Past Family History Mother Family Medical History: Congestive Heart Failure (CHF), COPD, Diabetes Mellitus Father Additional Family Medical History / Comment(s): pancreatitis Medications and Allergies Home Medications Medication Instructions Recorded Confirmed Type ALPRAZolam [Xanax] 0.5 mg PO BID PRN 02/19/16 12/19/20 History Aspirin EC [Ecotrin Low Dose] 81 mg PO DAILY 02/19/16 12/19/20 History Baclofen 10 mg PO TID 02/19/16 12/19/20 History Diclofenac Sodium [Voltaren] 75 mg PO BID PRN 02/19/16 12/19/20 History Ferrous Sulfate [Feosol] 325 mg PO DAILY 02/19/16 12/19/20 History Gabapentin [Neurontin] 600 mg PO 5XD 02/19/16 12/19/20 History Multivitamins, Thera [Multivitamin 1 tab PO DAILY 02/19/16 12/19/20 History (formulary)] Pravastatin Sodium [Pravachol] 40 mg PO HS 02/19/16 12/19/20 History hydroCHLOROthiazide 50 mg PO DAILY 02/19/16 12/19/20 History lisinopriL [Zestril] 5 mg PO DAILY 02/19/16 12/19/20 History Clopidogrel [Plavix] 75 mg PO DAILY #90 tab 03/24/20 12/19/20 Rx Extavia 1 dose INJ MOWEFR 12/19/20 12/19/20 History Fluticasone Nasal [place] [Flonase 2 spr EA NOSTRIL DAILY PRN 12/19/20 12/19/20 History Nasal [place]] HYDROcodone/APAP 5-325MG [[place] 1 tab PO Q6H PRN 12/19/20 12/19/20 History 5-325] Sulfamethox-Tmp 800-160Mg [Bactrim 1 tab PO Q12HR 12/19/20 12/19/20 History DS 800-160 mg] Allergies Allergy/AdvReac Type Severity Reaction Status Date / Time Penicillins Allergy Unknown Verified 12/19/20 11:30 Childhood Sulfa (Sulfonamide AdvReac Rash/Hives Verified 12/19/20 11:30 Antibiotics) Surgical - Exam Vital Signs Temp Pulse Resp BP Pulse Ox 98.6 F 85 16 114/64 97 12/19/20 10:31 12/19/20 10:31 12/19/20 10:31 12/19/20 10:31 12/19/20 10:31 General appearance: The patient is alert, oriented, in no acute distress. HET: Head is normocephalic and atraumatic. Pupils are equal and reactive. Oropharynx is clear without lesions. Neck: Supple without lymphadenopathy. Trachea midline. Heart: S1 S2. Regular rate and rhythm. Lungs: Clear to auscultation. Abdomen: Soft, nontender, nondistended. Extremities: right lower extremity with wrap up to knee. Left lower extremity with lower extremity edema, multiple fluid-filled blisters on the left lower extremity, warm to touch with mild erythema, near medial aspect of left ankle, heel there is an open wound. Neurological: No focal deficits. Strength and sensation are grossly intact. Results - Labs 12/19/20 11:40 12/19/20 11:40 Abnormal Lab Results - Last 24 Hours (Table) 12/19/20 12/19/20 Range/Units 11:40 11:40 RBC 3.37 L (4.30-5.90) m/uL Hgb 10.0 L (13.0-17.5) gm/dL Hct 30.7 L (39.0-53.0) % BUN 26 H (9-20) mg/dL Glucose 101 H (74-99) mg/dL Alkaline Phosphatase 178 H (38-126) U/L C-Reactive Protein 21.4 H (<1.0) mg/dL Diabetes panel 12/19/20 Range/Units 11:40 Sodium 138 (137-145) mmol/L Potassium 4.5 (3.5-5.1) mmol/L Chloride 103 (98-107) mmol/L Carbon Dioxide 24 (22-30) mmol/L BUN 26 H (9-20) mg/dL Creatinine 0.92 (0.66-1.25) mg/dL Glucose 101 H (74-99) mg/dL Calcium 9.4 (8.4-10.2) mg/dL AST 28 (17-59) U/L ALT 24 (4-49) U/L Alkaline Phosphatase 178 H (38-126) U/L Total Protein 6.7 (6.3-8.2) g/dL Albumin 3.7 (3.5-5.0) g/dL Calcium panel 12/19/20 Range/Units 11:40 Calcium 9.4 (8.4-10.2) mg/dL Albumin 3.7 (3.5-5.0) g/dL Pituitary panel 12/19/20 Range/Units 11:40 Sodium 138 (137-145) mmol/L Potassium 4.5 (3.5-5.1) mmol/L Chloride 103 (98-107) mmol/L Carbon Dioxide 24 (22-30) mmol/L BUN 26 H (9-20) mg/dL Creatinine 0.92 (0.66-1.25) mg/dL Glucose 101 H (74-99) mg/dL Calcium 9.4 (8.4-10.2) mg/dL Adrenal panel 12/19/20 Range/Units 11:40 Sodium 138 (137-145) mmol/L Potassium 4.5 (3.5-5.1) mmol/L Chloride 103 (98-107) mmol/L Carbon Dioxide 24 (22-30) mmol/L BUN 26 H (9-20) mg/dL Creatinine 0.92 (0.66-1.25) mg/dL Glucose 101 H (74-99) mg/dL Calcium 9.4 (8.4-10.2) mg/dL Total Bilirubin 0.3 (0.2-1.3) mg/dL AST 28 (17-59) U/L ALT 24 (4-49) U/L Alkaline Phosphatase 178 H (38-126) U/L Total Protein 6.7 (6.3-8.2) g/dL Albumin 3.7 (3.5-5.0) g/dL - Imaging Comments: foot x-ray: Generalized soft tissue swelling with a large ulcer along the posterior medial aspect of the ankle. No discrete radiographic evidence for osteomyelitis at this time. Assessment and Plan Assessment: 1. Left foot wound 2. Left lower extremity swelling with venous stasis 3. Hyperlipidemia 4. Hypertension Plan: 1. Consult wound care, known to them 2. Continue IV antibiotics as ordered 3. At this time no plans for any vascular surgical intervention 4. Elevate left lower extremity Thank you for this consultation, we will continue to follow The impression and plan of care has been dictated as directed. Dr. Paez I performed a history and examination of this patient, discussed the same with the dictator. I agree with the dictator's note ,documented as a scribe. Any additional findings or plans will be noted.
[2020-12-19] MEDS: HYDROcodone/APAP 5-325MG 1 EACH TAB PO PRN ×2 (18:36→22:35)
[2020-12-19] MEDS: MEROPENEM 2 GM in SODIUM CHLORIDE 0.9% 100 ML IVPB SCH (22:35)
[2020-12-19] MEDS: VANCOMYCIN 1,500 MG in SODIUM CHLORIDE 0.9% 250 ML IVPB SCH (22:52)
[2020-12-20] MEDS ORDERED: FLUTICASONE 50MCG/SPRAY NASAL 16GM EA NOSTRIL PRN (01:16)
--- NOTE | 2020-12-20 01:17 | P.HPIM ---
History of Present Illness H&P Date: 12/19/20 Chief Complaint: Left leg swelling and pain. Patient is a 60-year-old male with a known history of hypertension, hyperlipidemia, history of SVT, chronic left lower extremity wound infection due to venous stasis and other medical problems presents to ER with complaints of left leg swelling redness and pain and worsening wound infection. Patient follows with Dr. Dockery at the wound care center and underwent debridement of the right lower extremity previously. Patient was complaining of left lower extremity wound infection on the medial aspect of the ankle and multiple blisters and increased swelling. No complaints of chest pain or shortness with. No nausea vomiting abdominal pain or diarrhea. X-ray of the ankle showed generalized soft tissue swelling with a large ulcer around the posterior medial aspect of the ankle. No discrete radiographic evidence for osteomyelitis at this time. Laboratory showed WBC 7.8 hemoglobin 10.0 and platelets 374 Sodium 138 potassium 4.5 chloride 103 BUN 26 and creatinine 0.92 alk phos 178 CRP 21.4 Review of Systems Constitutional: Patient denies any fever or chills . No generalized weakness or weight loss. Abdomen: Patient denied nausea vomiting and diarrhea and abdominal pain. Cardiovascular: Patient denies any chest pain or short of breath no palpitations. Respiratory: patient denied any cough or sputum production. No shortness of breath Neurologic: Patient denied any numbness or tingling headache. Musculoskeletal: Patient denies any complaints of joint swelling or deformity.Left leg swelling and pain. Skin: Negative Psychiatric: Negative Endocrine: No heat or cold intolerance. No recent weight gain. Genitourinary: No dysuria or hematuria. All other 14 point ROS negative except the above Past Medical History Past Medical History: GERD/Reflux, Hyperlipidemia, Hypertension, Skin Disorder, Supraventricular Tachycardia (SVT) Additional Past Medical History / Comment(s): [facility] VISIT 05/06/20. PATIENT STATES HE HAS MULTIPLE OPEN SORES ON RIGHT LEG/FOOT, HAS PAIN IN RIGHT LEG AND LEFT FOOT, SWELLING IN LEFT FOOT (HAS WRAPPED IT). HAS HAD TREATMENT AT [facility] FOR RIGHT LEG WOUND IN THE PAST. Muscular Sclerosis, right leg paralyzed knee down, USES WALKER. History of Any Multi-Drug Resistant Organisms: None Reported Past Surgical History: Tonsillectomy Additional Past Surgical History / Comment(s): right leg angioplasty. (L) shoulder surgery, collar bone surgery. aortogram w/runoff 03/01/20 Past Anesthesia/Blood Transfusion Reactions: No Reported Reaction Past Psychological History: No Psychological Hx Reported Smoking Status: Former smoker Past Alcohol Use History: None Reported Past Drug Use History: None Reported - Past Family History Mother Family Medical History: Congestive Heart Failure (CHF), COPD, Diabetes Mellitus Father Additional Family Medical History / Comment(s): pancreatitis Medications and Allergies Home Medications Medication Instructions Recorded Confirmed Type ALPRAZolam [Xanax] 0.5 mg PO BID PRN 02/19/16 12/19/20 History Aspirin EC [Ecotrin Low Dose] 81 mg PO DAILY 02/19/16 12/19/20 History Baclofen 10 mg PO TID 02/19/16 12/19/20 History Diclofenac Sodium [Voltaren] 75 mg PO BID PRN 02/19/16 12/19/20 History Ferrous Sulfate [Feosol] 325 mg PO DAILY 02/19/16 12/19/20 History Gabapentin [Neurontin] 600 mg PO 5XD 02/19/16 12/19/20 History Multivitamins, Thera [Multivitamin 1 tab PO DAILY 02/19/16 12/19/20 History (formulary)] Pravastatin Sodium [Pravachol] 40 mg PO HS 02/19/16 12/19/20 History hydroCHLOROthiazide 50 mg PO DAILY 02/19/16 12/19/20 History lisinopriL [Zestril] 5 mg PO DAILY 02/19/16 12/19/20 History Clopidogrel [Plavix] 75 mg PO DAILY #90 tab 03/24/20 12/19/20 Rx Extavia 1 dose INJ MOWEFR 12/19/20 12/19/20 History Fluticasone Nasal [place] [Flonase 2 spr EA NOSTRIL DAILY PRN 12/19/20 12/19/20 History Nasal [place]] HYDROcodone/APAP 5-325MG [[place] 1 tab PO Q6H PRN 12/19/20 12/19/20 History 5-325] Sulfamethox-Tmp 800-160Mg [Bactrim 1 tab PO Q12HR 12/19/20 12/19/20 History DS 800-160 mg] Allergies Allergy/AdvReac Type Severity Reaction Status Date / Time Penicillins Allergy Unknown Verified 12/19/20 11:30 Childhood Sulfa (Sulfonamide AdvReac Rash/Hives Verified 12/19/20 11:30 Antibiotics) Physical Exam Vitals: Vital Signs Temp Pulse Resp BP Pulse Ox 12/19/20 13:39 97.5 F L 107 H 18 139/74 100 12/19/20 10:31 98.6 F 85 16 114/64 97 Intake and Output 12/19/20 12/19/20 12/19/20 06:59 14:59 22:59 Other: Weight 95.254 kg PHYSICAL EXAMINATION: Patient is lying in the bed comfortably, no acute distress, awake alert and oriented.. HEENT: Normocephalic. Neck is supple. Pupils reactive. Nostrils clear. Oral cavity is moist. Neck reveals no JVD, carotid bruits, or thyromegaly. CHEST EXAMINATION: Trachea is central. Symmetrical expansion. Lung jiménez clear to auscultation and percussion. CARDIAC: Normal S1, S2 with no gallops. No murmurs ABDOMEN: Soft. Bowel sounds normal. No organomegaly. No abdominal bruits. Extremities: Patient does have open wound on the left medial ankle region and multiple blisters on the lower extremity. Right foot ulcer is bandaged.. No clubbing or cyanosis Neurologically awake, alert, oriented x3 with well-coordinated movements. No focal deficits noted Skin: No rash or skin lesions. Psychiatric: Coperative. Nonsuicidal Musculoskeletal: No joint swelling or deformity. Normal range of motion. Results CBC & Chem 7: 12/20/20 17:47 12/20/20 12:34 Labs: Abnormal Lab Results - Last 24 Hours (Table) 12/19/20 12/19/20 Range/Units 11:40 11:40 RBC 3.37 L (4.30-5.90) m/uL Hgb 10.0 L (13.0-17.5) gm/dL Hct 30.7 L (39.0-53.0) % BUN 26 H (9-20) mg/dL Glucose 101 H (74-99) mg/dL Alkaline Phosphatase 178 H (38-126) U/L C-Reactive Protein 21.4 H (<1.0) mg/dL Thrombosis Risk Factor Assmnt - DVT/VTE Prophylaxis DVT/VTE Prophylaxis: Pharmacologic Prophylaxis ordered Assessment and Plan Assessment: Left lower extremity venous stasis ulcers mainly over the left medial malleolus with increasing swelling. Chronic lower extremity venous stasis ulcers with history of debridement on the right side. Hypertension Hyperlipidemia History of SVT GERD History of multiple sclerosis with right lower extremity paralysis. Uses walker. Previous history of smoking DVT prophylaxis with heparin subcu Plan: Patient was started on antibiotics in the form of vancomycin. Continue with wound care and cultures were sent. Lower extremity duplex scan was ordered. Vascular surgery and ID was consulted. Continue with aspirin and Plavix and blood pressure medications. Pain management with [place]. Dilaudid IV as needed. Continue to follow closely. Prognosis guarded at this time. Time with Patient: Greater than 30
[2020-12-20] MEDS: HYDROmorphone 0.5 MG/0.5 ML SYRINGE IVP PRN ×3 (02:17→19:52)
[2020-12-20] MEDS: ALPRAZolam 0.5 MG TAB PO PRN ×2 (02:18→22:53)
[2020-12-20] MEDS: HYDROcodone/APAP 5-325MG 1 EACH TAB PO PRN ×4 (02:18→22:53)
[2020-12-20] MEDS: VANCOMYCIN 1,500 MG in SODIUM CHLORIDE 0.9% 250 ML IVPB SCH (06:24)
[2020-12-20] MEDS: MEROPENEM 2 GM in SODIUM CHLORIDE 0.9% 100 ML IVPB SCH (09:04)
[2020-12-20] MEDS: CLOPIDOGREL 75 MG TAB PO SCH (09:15)
[2020-12-20] MEDS: ASPIRIN 81 MG PO SCH (09:15)
[2020-12-20] MEDS: HEPARIN SODIUM,PORCINE/PF 5,000 UNIT/0.5 ML SYRINGE SQ SCH ×2 (09:16→16:21)
[2020-12-20] MEDS: BACLOFEN 10 MG TAB PO SCH ×3 (09:16→19:52)
[2020-12-20] MEDS: lisinopriL 5 MG TAB PO SCH (09:16)
--- NOTE | 2020-12-20 10:17 | US ---
EXAMINATION TYPE: US venous doppler duplex LE LT DATE OF EXAM: 12/20/2020 10:11 AM COMPARISON: NONE CLINICAL HISTORY: leg pain and swelling. Left leg pain Exam done portable. SIDE PERFORMED: Left TECHNIQUE: The lower extremity deep venous system is examined utilizing real time linear array sonog mirlande with graded compression, doppler sonography and color-flow sonography. VESSELS IMAGED: Common Femoral Vein Deep Femoral Vein Greater Saphenous Vein * Femoral Vein Popliteal Vein Small Saphenous Vein * Proximal Calf Veins (* superficial vessels) Left Leg: Positive for DVT distal femoral vein through proximal calf veins with partial compression and partial flow seen IMPRESSION: Positive DVT as noted.
[2020-12-20 10:32] LABS: Basophils # (A) 0.01 X 10*3/uL (0.00-0.10); Basophils % (A) 0.1 %; Eosinophils % (A) 1.5 %; HCT 29.6 % (39.6-50.0); HGB 9.3 g/dL (13.0-17.0); Lymphocytes # (A) 1.18 X 10*3/uL (0.90-5.00); Lymphocytes % (A) 17.2 %; MCH 29.1 pg (27.0-32.0); MCHC 31.4 g/dL (32.0-37.0); MCV 92.5 fL (80.0-97.0); Mean Platelet Volume 8.7 fL (9.5-12.2); Monocytes # (A) 0.66 X 10*3/uL (0.20-1.00); Monocytes % (A) 9.6 %; Neutrophils # (A) 4.88 X 10*3/uL (1.80-7.70); Neutrophils % (A) 70.9 %; Platelet Count 330 X 10*3/uL (140-440); RDW 13.9 % (11.5-14.5); WBC 6.88 X 10*3/uL (4.50-10.00)
[2020-12-20 10:34] LABS: African American GFR (CKD) 119.7 (60.0-200.0); Anion Gap 9.8 mmol/L (4.00-12.00); BUN/Creat Ratio 21.43 Ratio (12.00-20.00); Calcium 9.3 mg/dL (8.7-10.3); Carbon Dioxide 23.2 mmol/L (21.6-31.8); Non-African American GFR(CKD) 103.3 (60.0-200.0); Potassium 4.6 mmol/L (3.5-5.5)
--- NOTE | 2020-12-20 12:10 | P.PN ---
Subjective Progress Note Date: 12/20/20 Principal diagnosis: left foot wound Patient is seen and examined lying in bed. Dressing is being changed. He denies any acute changes through the night. Wound care consult is ordered, patient has yet to be seen by them. They will manage lower extremity wounds. Objective - Vital Signs Vital signs: Vital Signs Temp 98.0 F 12/20/20 08:56 Pulse 96 12/20/20 08:56 Resp 18 12/20/20 08:56 BP 131/77 12/20/20 08:56 Pulse Ox 99 12/20/20 08:56 Intake & Output 12/19/20 12/20/20 12/20/20 18:59 06:59 18:59 Intake Total 350 240 Balance 350 240 Weight 95.254 kg Intake: Intake, IV Titration 350 Amount Meropenem 2 gm In Sodium 100 Chloride 0.9% 100 ml @ 33 .3 mls/hr IVPB Q8H [facility] Rx #:[id number] Vancomycin 1,500 mg In 250 Sodium Chloride 0.9% 250 ml @ 125 mls/hr IVPB Q8H [facility] Rx#:[id number] Oral 240 Other: Voiding Method Bedside Commode Urinal Urinal Diaper Diaper - Exam General appearance: The patient is alert, oriented, in no acute distress. HET: Head is normocephalic and atraumatic. Pupils are equal and reactive. Oropharynx is clear without lesions. Neck: Supple without lymphadenopathy. Trachea midline. Heart: S1 S2. Regular rate and rhythm. Lungs: Clear to auscultation. Abdomen: Soft, nontender, nondistended. Extremities: right lower extremity with wrap up to knee. Left lower extremity with lower extremity edema, multiple fluid-filled blisters on the left lower extremity, warm to touch with mild erythema, open wound near medial aspect of left ankle with dressing. Neurological: No focal deficits. Strength and sensation are grossly intact. - Labs CBC & Chem 7: 12/20/20 04:53 12/20/20 04:53 Labs: Abnormal Lab Results - Last 24 Hours (Table) 12/19/20 12/19/20 12/20/20 Range/Units 11:40 11:40 04:53 RBC 3.37 L 3.20 L (4.30-5.90) m/uL Hgb 10.0 L 9.3 L (13.0-17.5) gm/dL Hct 30.7 L 29.6 L (39.0-53.0) % MCHC 31.4 L (32.0-37.0) g/dL MPV 8.7 L (9.5-12.2) fL Immature Gran # 0.05 H (0.00-0.04) X 10*3/uL BUN 26 H (9-20) mg/dL BUN/Creatinine Ratio (12.00-20.00) Ratio Glucose 101 H (74-99) mg/dL Alkaline Phosphatase 178 H (38-126) U/L C-Reactive Protein 21.4 H (<1.0) mg/dL 12/20/20 Range/Units 04:53 RBC (4.30-5.90) m/uL Hgb (13.0-17.5) gm/dL Hct (39.0-53.0) % MCHC (32.0-37.0) g/dL MPV (9.5-12.2) fL Immature Gran # (0.00-0.04) X 10*3/uL BUN (9-20) mg/dL BUN/Creatinine Ratio 21.43 H (12.00-20.00) Ratio Glucose (74-99) mg/dL Alkaline Phosphatase (38-126) U/L C-Reactive Protein (<1.0) mg/dL Microbiology - Last 24 Hours (Table) 12/19/20 12:57 Gram Stain - Preliminary Foot - Left Wound Culture - Preliminary Presumptive Staph aureus Assessment and Plan Assessment: 1. Left foot wound 2. Left lower extremity swelling with venous stasis 3. Hyperlipidemia 4. Hypertension Plan: 1. Consult wound care, known to them 2. Continue IV antibiotics as ordered 3. At this time no plans for any vascular surgical intervention 4. Elevate left lower extremity Thank you for this consultation, we will continue to follow The impression and plan of care has been dictated as directed. Dr. Ghotra I performed a history and examination of this patient, discussed the same with the dictator. I agree with the dictator's note ,documented as a scribe. Any additional findings or plans will be noted.
[2020-12-20] MEDS ORDERED: VANCOMYCIN TROUGH DUE 1 EACH MISC MISCELLANE ONE (13:00)
[2020-12-20 13:06] LABS: African American GFR (CKD) >90 (>60 ml/min/1.73 sqM); Non-African American GFR(CKD) >90 (>60 ml/min/1.73 sqM)
--- NOTE | 2020-12-20 13:38 | P.CONS ---
History of Present Illness - Reason for Consult Consult date: 12/20/20 wound care - History of Present Illness This is a 60-year-old patient known to the wound care center who is being seen on for nonhealing ulceration to the left medial lower extremity. Patient was seen yesterday in the wound care center with a large ulceration to the medial malleolus. Patient stated that on Saturday of the previous week he started to have discomfort and removed his compression wrap noting redness to the foot extending to the mid calf. Patient called his primary care physician who started him on Bactrim for cellulitis. Patient was then seen on Saturday with a increase in the erythema and a larger ulceration to the medial malleolus. Patient was instructed to go to the emergency room for admission due to failed outpatient therapy. The wound is currently classified as a Full Thickness With out Exposed Support Structures wound with etiologies of Cellulitis and Arterial Insufficiency Ulcer and is located on the Left,Medial Ankle. The wound measures 3cm length x 3.4cm width x 0.1cm depth; 8.011cm^2 area and 0.801cm^3 volume. There is a large amount of serous drainage noted. The wound margin is indistinct and nonvisible. There is no granulation within the wound bed. There is a large (67-100%) amount of necrotic tissue within the wound bed including Adherent Slough. The periwound skin appearance exhibited: Maceration, Ecchymosis, Rubor, Erythema. The periwound skin appearance did not exhibit: Callus, Crepitus, Excoriation, Induration, Rash, Scarring, Dry/Scaly, Atrophie Kline, He mosiderin Staining, Mottled, Pallor. The surrounding wound skin color is noted with erythema which is circumferential. Periwound temperature was noted as No Abnormality. The periwound has tenderness on palpation. The right lower extremity has a compression wrap in place. Review Of Systems: Constitutional: No fever, no chills, no night sweats. No weight change. No weakness, fatigue or lethargy. No daytime sleepiness. Integumentary:reports wounds, no lesions. No rash or pruritus. No unusual bruising. No change in hair or nails. Physical exam: General Appearance: Alert, cooperative, no distress, appears stated age. Skin: See HPI all other Skin color, texture, tugor normal, no rashes or lesions. Neurologic: Alert oriented x3 Assessment: 1. Nonpressure chronic ulceration of the left lower extremity with muscle involvement without necrosis. 2.Peripheral vascular disease 3. Nonpressure chronic left cerebral other part of left lower leg with fat layer exposure 4. Nonpressure chronic ulcer of other part of right foot with fat layer exposure And: 1. Apply absorptive silver rope, saline moistened gauze, dry gauze, rolled gauze apply zinc barrier cream to periwound. Wrap with David wrap. Continue to elevate legs. Patient will follow-up in the wound care center next Saturday at 8:30. 2. Keep 3 [address] in place to the right lower extremity thank you for the consultation any questions please contact the wound care center DNP note has been reviewed and discussed with Dr. Sky and the impression and plan of care has been directed as dictated. Past Medical History Past Medical History: GERD/Reflux, Hyperlipidemia, Hypertension, Skin Disorder, Supraventricular Tachycardia (SVT) Additional Past Medical History / Comment(s): [facility] VISIT 05/06/20. PATIENT STATES HE HAS MULTIPLE OPEN SORES ON RIGHT LEG/FOOT, HAS PAIN IN RIGHT LEG AND LEFT FOOT, SWELLING IN LEFT FOOT (HAS WRAPPED IT). HAS HAD TREATMENT AT [facility] FOR RIGHT LEG WOUND IN THE PAST. Muscular Sclerosis, right leg paralyzed knee down, USES WALKER. History of Any Multi-Drug Resistant Organisms: None Reported Past Surgical History: Tonsillectomy Additional Past Surgical History / Comment(s): right leg angioplasty. (L) shoulder surgery, collar bone surgery. aortogram w/runoff 03/01/20 Past Anesthesia/Blood Transfusion Reactions: No Reported Reaction Smoking Status: Former smoker - Past Family History Mother Family Medical History: Congestive Heart Failure (CHF), COPD, Diabetes Mellitus Father Additional Family Medical History / Comment(s): pancreatitis Medications and Allergies Home Medications Medication Instructions Recorded Confirmed Type ALPRAZolam [Xanax] 0.5 mg PO BID PRN 02/19/16 12/19/20 History Aspirin EC [Ecotrin Low Dose] 81 mg PO DAILY 02/19/16 12/19/20 History Baclofen 10 mg PO TID 02/19/16 12/19/20 History Diclofenac Sodium [Voltaren] 75 mg PO BID PRN 02/19/16 12/19/20 History Ferrous Sulfate [Feosol] 325 mg PO DAILY 02/19/16 12/19/20 History Gabapentin [Neurontin] 600 mg PO 5XD 02/19/16 12/19/20 History Multivitamins, Thera [Multivitamin 1 tab PO DAILY 02/19/16 12/19/20 History (formulary)] Pravastatin Sodium [Pravachol] 40 mg PO HS 02/19/16 12/19/20 History hydroCHLOROthiazide 50 mg PO DAILY 02/19/16 12/19/20 History lisinopriL [Zestril] 5 mg PO DAILY 02/19/16 12/19/20 History Clopidogrel [Plavix] 75 mg PO DAILY #90 tab 03/24/20 12/19/20 Rx Extavia 1 dose INJ MOWEFR 12/19/20 12/19/20 History Fluticasone Nasal [place] [Flonase 2 spr EA NOSTRIL DAILY PRN 12/19/20 12/19/20 History Nasal [place]] HYDROcodone/APAP 5-325MG [[place] 1 tab PO Q6H PRN 12/19/20 12/19/20 History 5-325] Sulfamethox-Tmp 800-160Mg [Bactrim 1 tab PO Q12HR 12/19/20 12/19/20 History DS 800-160 mg] Allergies Allergy/AdvReac Type Severity Reaction Status Date / Time Penicillins Allergy Unknown Verified 12/19/20 11:30 Childhood Sulfa (Sulfonamide AdvReac Rash/Hives Verified 12/19/20 11:30 Antibiotics) Physical Exam Vitals: Vital Signs Temp Pulse Pulse Resp BP BP Pulse Ox 12/20/20 08:56 98.0 F 96 18 131/77 99 12/20/20 02:21 97.9 F 95 16 108/72 97 12/19/20 20:13 99.7 F H 99 18 112/63 98 12/19/20 18:44 100.3 F H 12/19/20 18:33 110 H 18 168/75 96 12/19/20 13:39 97.5 F L 107 H 18 139/74 100 Intake and Output 12/19/20 12/20/20 12/20/20 22:59 06:59 14:59 Intake Total 350 240 Output Total 1000 Balance 350 -760 Intake: Intake, IV Titration 350 Amount Meropenem 2 gm In Sodium 100 Chloride 0.9% 100 ml @ 33 .3 mls/hr IVPB Q8H [facility] Rx #:[id number] Vancomycin 1,500 mg In 250 Sodium Chloride 0.9% 250 ml @ 125 mls/hr IVPB Q8H [facility] Rx#:[id number] Oral 240 Output: Urine 1000 Other: Voiding Method Bedside Commode Urinal Urinal Diaper Diaper Weight 95.254 kg Results CBC & Chem 7: 12/20/20 04:53 12/20/20 12:34 Labs: Abnormal Lab Results - Last 24 Hours (Table) 12/20/20 12/20/20 12/20/20 Range/Units 04:53 04:53 12:34 RBC 3.20 L (4.40-5.60) X 10*6/uL Hgb 9.3 L (13.0-17.0) g/dL Hct 29.6 L (39.6-50.0) % MCHC 31.4 L (32.0-37.0) g/dL MPV 8.7 L (9.5-12.2) fL Immature Gran # 0.05 H (0.00-0.04) X 10*3/uL Creatinine 0.59 L (0.66-1.25) mg/dL BUN/Creatinine Ratio 21.43 H (12.00-20.00) Ratio Microbiology - Last 24 Hours (Table) 12/19/20 12:57 Gram Stain - Preliminary Foot - Left Wound Culture - Preliminary Presumptive Staph aureus Assessment and Plan (1) Non-pressure ulcer of left lower extremity with necrosis of muscle Current Visit: Yes Status: Acute Code(s): L97.923 - NON-PRS CHRONIC ULC UNSP PRT OF L LOW LEG W NECROS MUSCLE SNOMED Code(s): 54233342 (2) Left leg cellulitis Current Visit: Yes Status: Acute Code(s): L03.116 - CELLULITIS OF LEFT LOWER LIMB SNOMED Code(s): 026109737 (3) 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
[2020-12-20] MEDS ORDERED: HEPARIN SODIUM 1,000 UN/ML (10ML VL) IV ONE (17:29)
[2020-12-20] MEDS ORDERED: HEPARIN SODIUM 1,000 UN/ML (10ML VL) IV PRN (17:29)
[2020-12-20 18:04] LABS: Basophils % (A) 0 %; Eosinophils # (A) 0.1 k/uL (0-0.7); Eosinophils % (A) 1 %; HCT 29.6 % (39.0-53.0); HGB 9.5 gm/dL (13.0-17.5); Lymphocytes # (A) 0.8 k/uL (1.0-4.8); Lymphocytes % (A) 11 %; MCH 29.4 pg (25.0-35.0); MCHC 32.2 g/dL (31.0-37.0); MCV 91.4 fL (80.0-100.0); Mean Platelet Volume 7.8; Monocytes # (A) 0.4 k/uL (0-1.0); Monocytes % (A) 6 %; Neutrophils % (A) 82 %; Platelet Count 347 k/uL (150-450); RBC 3.24 m/uL (4.30-5.90); RDW 13.5 % (11.5-15.5); WBC 7.4 k/uL (3.8-10.6)
[2020-12-20 18:12] LABS: Partial Thromboplastin Time 24.3 sec (22.0-30.0); Prothrombin Time 10.3 sec (9.0-12.0)
[2020-12-20] MEDS: HEPARIN SOD,PORK IN 0.45% NACL 25,000 UNIT in 0.45% NACL 1 250ML.BAG IV SCH (18:43)
[2020-12-20] MEDS: PRAVASTATIN SODIUM 40 MG TAB PO SCH (19:52)
[2020-12-21 06:41] LABS: Basophils % (A) 0 %; Eosinophils # (A) 0.2 k/uL (0-0.7); Eosinophils % (A) 2 %; HCT 31.4 % (39.0-53.0); Lymphocytes # (A) 1.4 k/uL (1.0-4.8); Lymphocytes % (A) 15 %; MCH 29.1 pg (25.0-35.0); MCHC 31.7 g/dL (31.0-37.0); MCV 91.7 fL (80.0-100.0); Mean Platelet Volume 7.1; Monocytes # (A) 0.6 k/uL (0-1.0); Monocytes % (A) 6 %; Neutrophils # (A) 6.8 k/uL (1.3-7.7); Neutrophils % (A) 75 %; Platelet Count 375 k/uL (150-450); RBC 3.43 m/uL (4.30-5.90); RDW 13.5 % (11.5-15.5); WBC 9.1 k/uL (3.8-10.6)
[2020-12-21 06:58] LABS: African American GFR (CKD) >90 (>60 ml/min/1.73 sqM); Anion Gap 12 mmol/L; Blood Urea Nitrogen 14 mg/dL (9-20); Calcium 9.6 mg/dL (8.4-10.2); Carbon Dioxide 21 mmol/L (22-30); Chloride 105 mmol/L (98-107); Glucose 104 mg/dL (74-99); Non-African American GFR(CKD) >90 (>60 ml/min/1.73 sqM); Potassium 4.2 mmol/L (3.5-5.1); Sodium 138 mmol/L (137-145)
--- NOTE | 2020-12-21 07:08 | P.CONS ---
History of Present Illness - Reason for Consult Consult date: 12/20/20 left leg cellulitis Requesting physician: Clayton Milian - Chief Complaint Left leg pain and swelling x few days - History of Present Illness Patient is a 60-year-old male with a past medical history significant for nonhealing wound to the lower extremity for the patient is evaluated at the [facility] wound care center patient recently started having increasing swelling and redness to the left leg over the last few days for the patient was seen by his primary care physician and started on Bactrim DS however did not have significant improvement patient was sent from the wound care center yesterday for management of lower extremity cellulitis patient complaining of increasing swelling redness of the left leg along with the pain to 7 the pain to be more of a sharp and throbbing 5-6 out of 10 and no radiation patient did have some superficial incision clear drainage from his left leg with recently the patient was evaluated by ER physician on arrival to the ER the patient was afebrile subsequently did spike a fever last night of 100.3 F patient was tachycardic did have a normal white count of kidney function was normal blood cultures have been obtained culture has been obtained from the leg patient did have Doppler ultrasound which was positive for DVT left leg, patient has been started on vancomycin and meropenem infectious disease was consulted for further management of antibiotic therapy. Review of Systems Positive point has been mentioned in the HPI rest of the systems are negative Past Medical History Past Medical History: GERD/Reflux, Hyperlipidemia, Hypertension, Skin Disorder, Supraventricular Tachycardia (SVT) Additional Past Medical History / Comment(s): [facility] VISIT 05/06/20. PATIENT STATES HE HAS MULTIPLE OPEN SORES ON RIGHT LEG/FOOT, HAS PAIN IN RIGHT LEG AND LEFT FOOT, SWELLING IN LEFT FOOT (HAS WRAPPED IT). HAS HAD TREATMENT AT [facility] FOR RIGHT LEG WOUND IN THE PAST. Muscular Sclerosis, right leg paralyzed knee down, USES WALKER. History of Any Multi-Drug Resistant Organisms: None Reported Past Surgical History: Tonsillectomy Additional Past Surgical History / Comment(s): right leg angioplasty. (L) shoulder surgery, collar bone surgery. aortogram w/runoff 03/01/20 Past Anesthesia/Blood Transfusion Reactions: No Reported Reaction Smoking Status: Former smoker - Past Family History Mother Family Medical History: Congestive Heart Failure (CHF), COPD, Diabetes Mellitus Father Additional Family Medical History / Comment(s): pancreatitis Medications and Allergies Home Medications Medication Instructions Recorded Confirmed Type ALPRAZolam [Xanax] 0.5 mg PO BID PRN 02/19/16 12/19/20 History Aspirin EC [Ecotrin Low Dose] 81 mg PO DAILY 02/19/16 12/19/20 History Baclofen 10 mg PO TID 02/19/16 12/19/20 History Diclofenac Sodium [Voltaren] 75 mg PO BID PRN 02/19/16 12/19/20 History Ferrous Sulfate [Feosol] 325 mg PO DAILY 02/19/16 12/19/20 History Gabapentin [Neurontin] 600 mg PO 5XD 02/19/16 12/19/20 History Multivitamins, Thera [Multivitamin 1 tab PO DAILY 02/19/16 12/19/20 History (formulary)] Pravastatin Sodium [Pravachol] 40 mg PO HS 02/19/16 12/19/20 History hydroCHLOROthiazide 50 mg PO DAILY 02/19/16 12/19/20 History lisinopriL [Zestril] 5 mg PO DAILY 02/19/16 12/19/20 History Clopidogrel [Plavix] 75 mg PO DAILY #90 tab 03/24/20 12/19/20 Rx Extavia 1 dose INJ MOWEFR 12/19/20 12/19/20 History Fluticasone Nasal [place] [Flonase 2 spr EA NOSTRIL DAILY PRN 12/19/20 12/19/20 History Nasal [place]] HYDROcodone/APAP 5-325MG [[place] 1 tab PO Q6H PRN 12/19/20 12/19/20 History 5-325] Sulfamethox-Tmp 800-160Mg [Bactrim 1 tab PO Q12HR 12/19/20 12/19/20 History DS 800-160 mg] Allergies Allergy/AdvReac Type Severity Reaction Status Date / Time Penicillins Allergy Unknown Verified 12/19/20 11:30 Childhood Sulfa (Sulfonamide AdvReac Rash/Hives Verified 12/19/20 11:30 Antibiotics) Physical Exam Vitals: Vital Signs Temp Pulse Pulse Resp BP BP Pulse Ox 12/20/20 08:56 98.0 F 96 18 131/77 99 12/20/20 02:21 97.9 F 95 16 108/72 97 12/19/20 20:13 99.7 F H 99 18 112/63 98 12/19/20 18:44 100.3 F H 12/19/20 18:33 110 H 18 168/75 96 12/19/20 13:39 97.5 F L 107 H 18 139/74 100 Intake and Output 12/19/20 12/20/20 12/20/20 22:59 06:59 14:59 Intake Total 350 240 Balance 350 240 Intake: Intake, IV Titration 350 Amount Meropenem 2 gm In Sodium 100 Chloride 0.9% 100 ml @ 33 .3 mls/hr IVPB Q8H YOVANI Rx #:[id number] Vancomycin 1,500 mg In 250 Sodium Chloride 0.9% 250 ml @ 125 mls/hr IVPB Q8H YOVANI Rx#:[id number] Oral 240 Other: Voiding Method Bedside Commode Urinal Urinal Diaper Diaper Weight 95.254 kg GENERAL DESCRIPTION: Middle-aged male lying in bed, no distress. No tachypnea or accessory muscle of respiration use. HEENT: Shows Pallor , no scleral icterus. Oral mucous membrane is dry. No pharyngeal erythema or thrush NECK: Trachea central, no thyromegaly. LUNGS: Unlabored breathing. Clear to auscultation anteriorly. No wheeze or crackle. HEART: S1, S2, regular rate and rhythm. No loud murmur ABDOMEN: Soft, no tenderness , guarding or rigidity, no organomegaly EXTREMITIES: Left leg with superficial ulceration swelling and redness no foul- smelling drainage SKIN: No rash, no masses palpable. NEUROLOGICAL: The patient is awake, alert, oriented x3, mood and affect normal. Results CBC & Chem 7: 12/21/20 06:10 12/21/20 06:10 Labs: Abnormal Lab Results - Last 24 Hours (Table) 12/19/20 12/19/20 12/20/20 Range/Units 11:40 11:40 04:53 RBC 3.37 L 3.20 L (4.30-5.90) m/uL Hgb 10.0 L 9.3 L (13.0-17.5) gm/dL Hct 30.7 L 29.6 L (39.0-53.0) % MCHC 31.4 L (32.0-37.0) g/dL MPV 8.7 L (9.5-12.2) fL Immature Gran # 0.05 H (0.00-0.04) X 10*3/uL BUN 26 H (9-20) mg/dL BUN/Creatinine Ratio (12.00-20.00) Ratio Glucose 101 H (74-99) mg/dL Alkaline Phosphatase 178 H (38-126) U/L C-Reactive Protein 21.4 H (<1.0) mg/dL 12/20/20 Range/Units 04:53 RBC (4.30-5.90) m/uL Hgb (13.0-17.5) gm/dL Hct (39.0-53.0) % MCHC (32.0-37.0) g/dL MPV (9.5-12.2) fL Immature Gran # (0.00-0.04) X 10*3/uL BUN (9-20) mg/dL BUN/Creatinine Ratio 21.43 H (12.00-20.00) Ratio Glucose (74-99) mg/dL Alkaline Phosphatase (38-126) U/L C-Reactive Protein (<1.0) mg/dL Microbiology - Last 24 Hours (Table) 12/19/20 12:57 Gram Stain - Preliminary Foot - Left Wound Culture - Preliminary Presumptive Staph aureus Assessment and Plan Assessment: patient with acute left lower extremity cellulitis in this patient did have diffuse swelling and redness did have some superficial ulceration no significant slough tissue no evidence of DVT to the left leg concern is likely for a streptococcal cellulitis failing outpatient oral Bactrim DS therapy clinically doubt MRSA or gram-negative infection (1) Failure of outpatient treatment Current Visit: Yes Status: Acute Code(s): Z78.9 - OTHER SPECIFIED HEALTH STATUS SNOMED Code(s): 654906953 (2) Left leg cellulitis Current Visit: Yes Status: Acute Code(s): L03.116 - CELLULITIS OF LEFT LOWER LIMB SNOMED Code(s): 444187816 Plan: 1-discontinue vancomycin and meropenem 2-start the patient on cefazolin 2 g every 8 hours 3-Aquacel silver dressing to the superficial ulceration and a light David wrap with local care We will follow on clinical condition and cultures to further adjust medication if needed Thank you for this consultation we will follow the patient along with you Time with Patient: Greater than 30
[2020-12-21] MEDS: HYDROmorphone 0.5 MG/0.5 ML SYRINGE IVP PRN ×3 (08:19→20:44)
[2020-12-21] MEDS: HEPARIN SOD,PORK IN 0.45% NACL 25,000 UNIT in 0.45% NACL 1 250ML.BAG IV SCH ×2 (08:20→08:39)
[2020-12-21] MEDS: ASPIRIN 81 MG PO SCH (08:20)
[2020-12-21] MEDS: lisinopriL 5 MG TAB PO SCH (08:20)
[2020-12-21] MEDS: BACLOFEN 10 MG TAB PO SCH ×3 (08:20→20:44)
[2020-12-21] MEDS: CLOPIDOGREL 75 MG TAB PO SCH (08:20)
--- NOTE | 2020-12-21 10:56 | P.PN ---
Subjective Progress Note Date: 12/21/20 Principal diagnosis: left foot wound Patient is seen and examined lying in bed. He had a Doppler of the left lower extremity yesterday that was positive for DVT. Patient was started on a heparin drip. States he has discomfort in bilateral lower extremities. Infectious diseases on consult, he remains on IV antibiotics.he remains afebrile. Wound care management is on consult for dressing changes. Objective - Vital Signs Vital signs: Vital Signs Temp 98.9 F 12/21/20 08:16 Pulse 100 12/21/20 08:16 Resp 18 12/21/20 08:16 BP 139/66 12/21/20 08:16 Pulse Ox 98 12/21/20 08:16 Intake & Output 12/20/20 12/21/20 12/21/20 18:59 06:59 18:59 Intake Total 480 481.893 39.119 Output Total 1675 850 200 Balance -1195 -368.107 -160.881 Weight 95.254 kg 105 kg Intake: Intake, IV Titration 481.893 39.119 Amount Heparin Sod,Pork in 0.45% 381.893 39.119 NaCl 25,000 unit In 0.45 % NaCl 1 250ml.bag @ 18 UNITS/KG/HR 17.146 mls/hr IV .[id number] YOVANI Rx#: [id number] ceFAZolin 2 gm In Sodium 100 Chloride 0.9% 50 ml @ 100 mls/hr IVPB Q8HR YOVANI Rx# :[id number] Oral 480 Output: Urine 1675 850 200 Other: Voiding Method Urinal Urinal Diaper Diaper # Voids 1 - Exam General appearance: The patient is alert, oriented, in no acute distress. HET: Head is normocephalic and atraumatic. Pupils are equal and reactive. Oropharynx is clear without lesions. Neck: Supple without lymphadenopathy. Trachea midline. Heart: S1 S2. Regular rate and rhythm. Lungs: Clear to auscultation. Abdomen: Soft, nontender, nondistended. Extremities: right lower extremity with wrap up to knee. Left lower extremity with lower extremity edema, multiple fluid-filled blisters on the left lower extremity, warm to touch with mild erythema, open wound near medial aspect of left ankle with dressing. Neurological: No focal deficits. Strength and sensation are grossly intact. - Labs CBC & Chem 7: 12/21/20 06:10 12/21/20 06:10 Labs: Abnormal Lab Results - Last 24 Hours (Table) 12/20/20 12/20/20 12/20/20 Range/Units 12:34 17:47 23:45 RBC 3.24 L (4.30-5.90) m/uL Hgb 9.5 L (13.0-17.5) gm/dL Hct 29.6 L (39.0-53.0) % Lymphocytes # 0.8 L (1.0-4.8) k/uL APTT 68.8 H (22.0-30.0) sec Carbon Dioxide (22-30) mmol/L Creatinine 0.59 L (0.66-1.25) mg/dL Glucose (74-99) mg/dL 12/21/20 12/21/20 12/21/20 Range/Units 06:10 06:10 06:51 RBC 3.43 L (4.30-5.90) m/uL Hgb 10.0 L (13.0-17.5) gm/dL Hct 31.4 L (39.0-53.0) % Lymphocytes # (1.0-4.8) k/uL APTT 41.1 H (22.0-30.0) sec Carbon Dioxide 21 L (22-30) mmol/L Creatinine 0.54 L (0.66-1.25) mg/dL Glucose 104 H (74-99) mg/dL Microbiology - Last 24 Hours (Table) 12/20/20 04:53 Blood Culture - Preliminary Blood No Growth after 24 hours 12/19/20 12:13 Blood Culture - Preliminary Blood No Growth after 24 hours 12/19/20 11:41 Blood Culture - Preliminary Blood No Growth after 24 hours 12/19/20 12:57 Gram Stain - Preliminary Foot - Left Wound Culture - Preliminary Presumptive Staph aureus Assessment and Plan Assessment: 1. Left foot wound 2. Left lower extremity swelling with venous stasis 3. Left lower extremity DVT 4. Hyperlipidemia 5. Hypertension Plan: 1. Wound care on consult, continue wound care per their instructions 2. Continue IV antibiotics as ordered 3. At this time no plans for any vascular surgical intervention 4. Elevate left lower extremity 5. Continue anticoagulation, may transition to oral Thank you for this consultation, there is no indication for any vascular surgical intervention at this time, we will sign off. The impression and plan of care has been dictated as directed. Dr. Paez I performed a history and examination of this patient, discussed the same with the dictator. I agree with the dictator's note ,documented as a scribe. Any additional findings or plans will be noted.
[2020-12-21] MEDS: APIXABAN 5 MG TAB PO SCH ×2 (12:32→20:44)
[2020-12-21] MEDS: [UNRECOGNIZED DRUG - OTHER] SQ SCH (12:32)
[2020-12-21] MEDS: HYDROcodone/APAP 5-325MG 1 EACH TAB PO PRN ×2 (12:32→18:56)
[2020-12-21] MEDS: CEFEPIME 2 GM in SODIUM CHLORIDE 0.9% 100 ML IVPB SCH (16:06)
--- NOTE | 2020-12-21 18:17 | PN ---
PROGRESS NOTE DATE OF SERVICE: 12/21/2020 REASON FOR FOLLOWUP: Left lower extremity wound cellulitis. INTERVAL HISTORY: Patient is afebrile. The patient is breathing comfortably. The patient denies having any chest pain. No shortness of breath or cough. No abdominal pain. Pain to the left leg is currently controlled. PHYSICAL EXAMINATION: Blood pressure 127/69, pulse 95, temperature 98.9. He is 99% on room air. General description is a middle-aged male lying in bed in no distress. Respiratory system: Unlabored breathing, clear to auscultation anteriorly. Heart S1, S2. Regular rate and rhythm. Abdomen: Soft, no tenderness. Left leg is currently dressed up. No obvious drainage on the dressing. LABS: Hemoglobin is 10.3, white count 9.1 BUN of 14.54. Local culture with MSSA and Gram- negative bacilli. DIAGNOSTIC IMPRESSION AND PLAN: Patient with left lower extremity ulcers and cellulitis. Culture showing MSSA and gram- negative. ID is into gram-negative, currently pending. Antibiotic adjusted to cefepime to cover for both pathogens. Further adjustment on the basis of the final sensitivity. Continue supportive care. MMODL / IJN: [id number] /
[2020-12-21] MEDS: PRAVASTATIN SODIUM 40 MG TAB PO SCH (20:44)
[2020-12-22] MEDS: CEFEPIME 2 GM in SODIUM CHLORIDE 0.9% 100 ML IVPB SCH ×4 (00:12→23:18)
[2020-12-22] MEDS: HYDROcodone/APAP 5-325MG 1 EACH TAB PO PRN ×4 (03:14→19:27)
[2020-12-22] MEDS: APIXABAN 5 MG TAB PO SCH ×2 (07:52→21:37)
[2020-12-22] MEDS: lisinopriL 5 MG TAB PO SCH (07:53)
[2020-12-22] MEDS: ASPIRIN 81 MG PO SCH (07:53)
[2020-12-22] MEDS: CLOPIDOGREL 75 MG TAB PO SCH (07:53)
[2020-12-22] MEDS: BACLOFEN 10 MG TAB PO SCH ×3 (07:53→21:37)
--- NOTE | 2020-12-22 10:42 | P.PN ---
Subjective Progress Note Date: 12/20/20 Principal diagnosis: Left lower extremity DVT Left foot venostasis ulcer Patient is a 60-year-old male with a known history of hypertension, hyperlipidemia, history of SVT, chronic left lower extremity wound infection due to venous stasis and other medical problems presents to ER with complaints of left leg swelling redness and pain and worsening wound infection. Patient foll ows with Dr. Dockery at the wound care center and underwent debridement of the right lower extremity previously. Patient was complaining of left lower extremity wound infection on the medial aspect of the ankle and multiple blisters and increased swelling. No complaints of chest pain or shortness with. No nausea vomiting abdominal pain or diarrhea. X-ray of the ankle showed generalized soft tissue swelling with a large ulcer around the posterior medial aspect of the ankle. No discrete radiographic evidence for osteomyelitis at this time. Laboratory showed WBC 7.8 hemoglobin 10.0 and platelets 374 Sodium 138 potassium 4.5 chloride 103 BUN 26 and creatinine 0.92 alk phos 178 CRP 21.4 12/20/2020 Patient is currently resting in the bed comfortably. No complaints of chest pain or shortness of breath. Left lower activity ultrasound showed DVT. Patient was started on heparin drip. Otherwise left foot swelling and leg swelling is improving. Patient is on antibiotics. ID is on board. [facility] surgery recommends no surgical intervention at this time. Patient has been afebrile. No complains of fever or chills. current medications reviewed. Objective - Vital Signs Vital signs: Vital Signs Temp 98.7 F 12/20/20 19:46 Pulse 106 H 12/20/20 19:46 Resp 18 12/20/20 19:46 BP 112/56 12/20/20 19:46 Pulse Ox 98 12/20/20 19:46 Intake & Output 12/20/20 12/20/20 12/21/20 06:59 18:59 06:59 Intake Total 350 480 Output Total 1675 280 Balance 350 -1195 -280 Weight 95.254 kg Intake: Intake, IV Titration 350 Amount Meropenem 2 gm In Sodium 100 Chloride 0.9% 100 ml @ 33 .3 mls/hr IVPB Q8H [facility] Rx #:[id number] Vancomycin 1,500 mg In 250 Sodium Chloride 0.9% 250 ml @ 125 mls/hr IVPB Q8H YOVANI Rx#:[id number] Oral 480 Output: Urine 1675 280 Other: Voiding Method Bedside Commode Urinal Urinal Urinal Diaper Diaper Diaper # Voids 1 - Exam PHYSICAL EXAMINATION: Patient is lying in the bed comfortably, no acute distress, awake alert and oriented.. HEENT: Normocephalic. Neck is supple. Pupils reactive. Nostrils clear. Oral cavity is moist. Neck reveals no JVD, carotid bruits, or thyromegaly. CHEST EXAMINATION: Trachea is central. Symmetrical expansion. Lung jiménez clear to auscultation and percussion. CARDIAC: Normal S1, S2 with no gallops. No murmurs ABDOMEN: Soft. Bowel sounds normal. No organomegaly. No abdominal bruits. Extremities: Patient does have open wound on the left medial ankle region and multiple blisters on the lower extremity. Right foot ulcer is bandaged.. No clubbing or cyanosis Neurologically awake, alert, oriented x3 with well-coordinated movements. No focal deficits noted Skin: No rash or skin lesions. Psychiatric: Coperative. Nonsuicidal Musculoskeletal: No joint swelling or deformity. Normal range of motion. - Labs CBC & Chem 7: 12/23/20 05:46 12/21/20 06:10 Labs: Abnormal Lab Results - Last 24 Hours (Table) 12/20/20 12/20/20 12/20/20 Range/Units 04:53 04:53 12:34 RBC 3.20 L (4.40-5.60) X 10*6/uL Hgb 9.3 L (13.0-17.0) g/dL Hct 29.6 L (39.6-50.0) % MCHC 31.4 L (32.0-37.0) g/dL MPV 8.7 L (9.5-12.2) fL Immature Gran # 0.05 H (0.00-0.04) X 10*3/uL Lymphocytes # (1.0-4.8) k/uL Creatinine 0.59 L (0.66-1.25) mg/dL BUN/Creatinine Ratio 21.43 H (12.00-20.00) Ratio 12/20/20 Range/Units 17:47 RBC 3.24 L (4.40-5.60) X 10*6/uL Hgb 9.5 L (13.0-17.0) g/dL Hct 29.6 L (39.6-50.0) % MCHC (32.0-37.0) g/dL MPV (9.5-12.2) fL Immature Gran # (0.00-0.04) X 10*3/uL Lymphocytes # 0.8 L (1.0-4.8) k/uL Creatinine (0.66-1.25) mg/dL BUN/Creatinine Ratio (12.00-20.00) Ratio Microbiology - Last 24 Hours (Table) 12/19/20 12:13 Blood Culture - Preliminary Blood No Growth after 24 hours 12/19/20 11:41 Blood Culture - Preliminary Blood No Growth after 24 hours 12/19/20 12:57 Gram Stain - Preliminary Foot - Left Wound Culture - Preliminary Presumptive Staph aureus Assessment and Plan Assessment: Left lower extremity DVT Left lower extremity venous stasis ulcers mainly over the left medial malleolus with increasing swelling. Chronic lower extremity venous stasis ulcers with history of debridement on the right side. Hypertension Hyperlipidemia History of SVT GERD History of multiple sclerosis with right lower extremity paralysis. Uses walker. Previous history of smoking DVT prophylaxis with heparin subcu Plan: patient was started on heparin drip. Patient was started on antibiotics in the form of cefazolin. Continue with wound care and cultures were sent. Lower extremity duplex scan was ordered. Vascular surgery and ID was consulted. Continue with aspirin and Plavix and blood pressure medications. Pain management with Alexander. Dilaudid IV as needed. Continue to follow closely. Prognosis guarded at this time. Time with Patient: Greater than 30
[2020-12-22 13:43] VITALS: BMI 25.4
--- NOTE | 2020-12-22 18:38 | PN ---
PROGRESS NOTE DATE OF SERVICE: 12/22/2020 REASON FOR FOLLOWUP: Left lower extremity wound and cellulitis. INTERVAL HISTORY: The patient is afebrile. He is breathing comfortably. Pain to the left leg is currently controlled. No chest pain, shortness of breath, cough, abdominal pain or diarrhea. PHYSICAL EXAMINATION: Blood pressure 114/72 with a pulse of 77, temperature 98.4. He is 99% on room air. General description is a middle-aged male up in the chair in no distress. Respiratory system: Unlabored breathing, clear to auscultation anteriorly. Heart: S1, S2. Regular rate and rhythm. Abdomen: Soft, no tenderness. Left leg is currently dressed up. No obvious drainage on the dressing. DIAGNOSTIC IMPRESSION AND PLAN: Patient with left leg wound and cellulitis. Culture showing MSSA and Pseudomonas. Patient is covered with cefepime. Finish therapy with oral Keflex and Cipro. Local care with Aquacel Silver dressing and David wrap. Continue supportive care. MMODL / IJN: [id number] /
[2020-12-22] MEDS: PRAVASTATIN SODIUM 40 MG TAB PO SCH (21:37)
[2020-12-23 06:15] LABS: Basophils % (A) 1 %; Eosinophils # (A) 0.1 k/uL (0-0.7); Eosinophils % (A) 2 %; HCT 32.6 % (39.0-53.0); HGB 10.8 gm/dL (13.0-17.5); Lymphocytes # (A) 1.1 k/uL (1.0-4.8); Lymphocytes % (A) 15 %; MCH 29.8 pg (25.0-35.0); MCHC 33.1 g/dL (31.0-37.0); MCV 89.9 fL (80.0-100.0); Mean Platelet Volume 6.4; Monocytes # (A) 0.3 k/uL (0-1.0); Monocytes % (A) 4 %; Neutrophils # (A) 5.5 k/uL (1.3-7.7); Neutrophils % (A) 76 %; Platelet Count 470 k/uL (150-450); RBC 3.62 m/uL (4.30-5.90); RDW 13.7 % (11.5-15.5); WBC 7.2 k/uL (3.8-10.6)
[2020-12-23] MEDS: lisinopriL 5 MG TAB PO SCH (08:59)
[2020-12-23] MEDS: APIXABAN 5 MG TAB PO SCH ×2 (08:59→21:39)
[2020-12-23] MEDS: BACLOFEN 10 MG TAB PO SCH ×3 (08:59→21:39)
[2020-12-23] MEDS: CLOPIDOGREL 75 MG TAB PO SCH (08:59)
[2020-12-23] MEDS: ASPIRIN 81 MG PO SCH (08:59)
[2020-12-23] MEDS: CEFEPIME 2 GM in SODIUM CHLORIDE 0.9% 100 ML IVPB SCH ×2 (09:00→15:43)
[2020-12-23] MEDS: [UNRECOGNIZED DRUG - OTHER] SQ SCH (09:00)
[2020-12-23] MEDS: HYDROcodone/APAP 5-325MG 1 EACH TAB PO PRN ×3 (09:04→21:39)
--- NOTE | 2020-12-23 11:25 | P.PN ---
Subjective Progress Note Date: 12/21/20 Principal diagnosis: Left lower extremity DVT Left foot venostasis ulcer Patient is a 60-year-old male with a known history of hypertension, hyperlipidemia, history of SVT, chronic left lower extremity wound infection due to venous stasis and other medical problems presents to ER with complaints of left leg swelling redness and pain and worsening wound infection. Patient foll ows with Dr. Dockery at the wound care center and underwent debridement of the right lower extremity previously. Patient was complaining of left lower extremity wound infection on the medial aspect of the ankle and multiple blisters and increased swelling. No complaints of chest pain or shortness with. No nausea vomiting abdominal pain or diarrhea. X-ray of the ankle showed generalized soft tissue swelling with a large ulcer around the posterior medial aspect of the ankle. No discrete radiographic evidence for osteomyelitis at this time. Laboratory showed WBC 7.8 hemoglobin 10.0 and platelets 374 Sodium 138 potassium 4.5 chloride 103 BUN 26 and creatinine 0.92 alk phos 178 CRP 21.4 12/20/2020 Patient is currently resting in the bed comfortably. No complaints of chest pain or shortness of breath. Left lower activity ultrasound showed DVT. Patient was started on heparin drip. Otherwise left foot swelling and leg swelling is improving. Patient is on antibiotics. ID is on board. [facility] surgery recommends no surgical intervention at this time. Patient has been afebrile. No complains of fever or chills. 12/21/2020 A rojo is currently resting in the bed comfortably. Left leg swelling is improving. Heparin has been discontinued and patient was started on oral anticoagulation. Continue with IV antibiotics and ID is on board. And on wound care. Patient has been afebrile. No nausea vomiting or abdominal pain or diarrhea. no chest pain or shortness breath. current medications reviewed. Objective - Vital Signs Vital signs: Vital Signs Temp 98.9 F 12/21/20 16:04 Pulse 95 12/21/20 16:04 Resp 18 12/21/20 16:04 BP 127/69 12/21/20 16:04 Pulse Ox 99 12/21/20 16:04 Intake & Output 12/21/20 12/21/20 12/22/20 06:59 18:59 06:59 Intake Total 481.893 909.119 Output Total 850 600 400 Balance -368.107 309.119 -400 Weight 105 kg Intake: Intake, IV Titration 481.893 189.119 Amount Cefepime 2 gm In Sodium 100 Chloride 0.9% 100 ml @ 25 mls/hr IVPB Q8HR YOVANI Rx# :[id number] Heparin Sod,Pork in 0.45% 381.893 39.119 NaCl 25,000 unit In 0.45 % NaCl 1 250ml.bag @ 18 UNITS/KG/HR 17.146 mls/hr IV .[id number] YOVANI Rx#: [id number] ceFAZolin 2 gm In Sodium 100 50 Chloride 0.9% 50 ml @ 100 mls/hr IVPB Q8HR YOVANI Rx# :[id number] Oral 720 Output: Urine 850 600 400 Other: Voiding Method Urinal Urinal Diaper Diaper # Voids 1 1 - Exam PHYSICAL EXAMINATION: Patient is lying in the bed comfortably, no acute distress, awake alert and oriented.. HEENT: Normocephalic. Neck is supple. Pupils reactive. Nostrils clear. Oral cavity is moist. Neck reveals no JVD, carotid bruits, or thyromegaly. CHEST EXAMINATION: Trachea is central. Symmetrical expansion. Lung jiménez clear to auscultation and percussion. CARDIAC: Normal S1, S2 with no gallops. No murmurs ABDOMEN: Soft. Bowel sounds normal. No organomegaly. No abdominal bruits. Extremities: Patient does have open wound on the left medial ankle region and multiple blisters on the lower extremity. Right foot ulcer is bandaged.. No clubbing or cyanosis Neurologically awake, alert, oriented x3 with well-coordinated movements. No focal deficits noted Skin: No rash or skin lesions. Psychiatric: Coperative. Nonsuicidal Musculoskeletal: No joint swelling or deformity. Normal range of motion. - Labs CBC & Chem 7: 12/23/20 05:46 12/21/20 06:10 Labs: Abnormal Lab Results - Last 24 Hours (Table) 12/20/20 12/21/20 12/21/20 Range/Units 23:45 06:10 06:10 RBC 3.43 L (4.30-5.90) m/uL Hgb 10.0 L (13.0-17.5) gm/dL Hct 31.4 L (39.0-53.0) % APTT 68.8 H (22.0-30.0) sec Carbon Dioxide 21 L (22-30) mmol/L Creatinine 0.54 L (0.66-1.25) mg/dL Glucose 104 H (74-99) mg/dL 12/21/20 Range/Units 06:51 RBC (4.30-5.90) m/uL Hgb (13.0-17.5) gm/dL Hct (39.0-53.0) % APTT 41.1 H (22.0-30.0) sec Carbon Dioxide (22-30) mmol/L Creatinine (0.66-1.25) mg/dL Glucose (74-99) mg/dL Microbiology - Last 24 Hours (Table) 12/19/20 12:13 Blood Culture - Preliminary Blood No Growth after 48 hours 12/19/20 11:41 Blood Culture - Preliminary Blood No Growth after 48 hours 12/19/20 12:57 Gram Stain - Preliminary Foot - Left Wound Culture - Preliminary Staphylococcus aureus Gram Neg Bacilli 12/20/20 04:53 Blood Culture - Preliminary Blood No Growth after 24 hours Assessment and Plan Assessment: Left lower extremity DVT Left lower extremity venous stasis ulcers, cellulitis, mainly over the left medial malleolus with increasing swelling. Chronic lower extremity venous stasis ulcers with history of debridement on the right side. Hypertension Hyperlipidemia History of SVT GERD History of multiple sclerosis with right lower extremity paralysis. Uses walker. Previous history of smoking DVT prophylaxis with heparin subcu Plan: patient was started on heparin drip. Transitioned to oral anticoagulation. Patient was started on antibiotics in the form of cefepime. Cefazolin has been discontinued.. Blood cultures negative. Wound cultures grew staph aureus and Pseudomonas.. Vascular surgery and ID is following.. Continue with aspirin and Plavix and blood pressure medications. Pain management with [place]. Dilaudid IV as needed. Continue to follow closely. Prognosis guarded at this time. Time with Patient: Greater than 30
--- NOTE | 2020-12-23 11:26 | P.PN ---
Subjective Progress Note Date: 12/22/20 Principal diagnosis: Left lower extremity DVT Left foot venostasis ulcer Patient is a 60-year-old male with a known history of hypertension, hyperlipidemia, history of SVT, chronic left lower extremity wound infection due to venous stasis and other medical problems presents to ER with complaints of left leg swelling redness and pain and worsening wound infection. Patient foll ows with Dr. Dockery at the wound care center and underwent debridement of the right lower extremity previously. Patient was complaining of left lower extremity wound infection on the medial aspect of the ankle and multiple blisters and increased swelling. No complaints of chest pain or shortness with. No nausea vomiting abdominal pain or diarrhea. X-ray of the ankle showed generalized soft tissue swelling with a large ulcer around the posterior medial aspect of the ankle. No discrete radiographic evidence for osteomyelitis at this time. Laboratory showed WBC 7.8 hemoglobin 10.0 and platelets 374 Sodium 138 potassium 4.5 chloride 103 BUN 26 and creatinine 0.92 alk phos 178 CRP 21.4 12/20/2020 Patient is currently resting in the bed comfortably. No complaints of chest pain or shortness of breath. Left lower activity ultrasound showed DVT. Patient was started on heparin drip. Otherwise left foot swelling and leg swelling is improving. Patient is on antibiotics. ID is on board. [facility] surgery recommends no surgical intervention at this time. Patient has been afebrile. No complains of fever or chills. 12/21/2020 A rojo is currently resting in the bed comfortably. Left leg swelling is improving. Heparin has been discontinued and patient was started on oral anticoagulation. Continue with IV antibiotics and ID is on board. And on wound care. Patient has been afebrile. No nausea vomiting or abdominal pain or diarrhea. no chest pain or shortness breath. 12/22/2020 Patient is currently sitting in the chair. Awake alert oriented 3. Leg swelling is much improved now. Wound cultures showing MSSA and Pseudomonas. Patient is being continued on cefepime. Continue with local wound care. Continue with oral anti-ablation. ID is on board. Patient has been afebrile. No chest pain or shortness of breath. No nausea vomiting or abdominal pain or diarrhea. Tolerating oral diet. current medications reviewed. Objective - Vital Signs Vital signs: Vital Signs Temp 98.4 F 12/22/20 15:57 Pulse 97 12/22/20 15:57 Resp 18 12/22/20 16:04 BP 114/72 12/22/20 15:57 Pulse Ox 99 12/22/20 15:57 Intake & Output 12/22/20 12/22/20 12/23/20 06:59 18:59 06:59 Intake Total 240 Output Total 950 Balance -950 240 Weight 105 kg Intake: Oral 240 Output: Urine 950 Other: Voiding Method Urinal Urinal Diaper Diaper # Voids 0 - Exam PHYSICAL EXAMINATION: Patient is lying in the bed comfortably, no acute distress, awake alert and oriented.. HEENT: Normocephalic. Neck is supple. Pupils reactive. Nostrils clear. Oral cavity is moist. Neck reveals no JVD, carotid bruits, or thyromegaly. CHEST EXAMINATION: Trachea is central. Symmetrical expansion. Lung jiménez clear to auscultation and percussion. CARDIAC: Normal S1, S2 with no gallops. No murmurs ABDOMEN: Soft. Bowel sounds normal. No organomegaly. No abdominal bruits. Extremities: Patient does have open wound on the left medial ankle region and multiple blisters on the lower extremity. Right foot ulcer is bandaged.. No clubbing or cyanosis Neurologically awake, alert, oriented x3 with well-coordinated movements. No f ocal deficits noted Skin: No rash or skin lesions. Psychiatric: Coperative. Nonsuicidal Musculoskeletal: No joint swelling or deformity. Normal range of motion. - Labs CBC & Chem 7: 12/23/20 05:46 12/21/20 06:10 Labs: Microbiology - Last 24 Hours (Table) 12/19/20 12:13 Blood Culture - Preliminary Blood No Growth after 72 hours 12/19/20 11:41 Blood Culture - Preliminary Blood No Growth after 72 hours 12/19/20 12:57 Gram Stain - Final Foot - Left Wound Culture - Final Staphylococcus aureus Pseudomonas aeruginosa 12/20/20 04:53 Blood Culture - Preliminary Blood No Growth after 48 hours Assessment and Plan Assessment: Left lower extremity DVT Left lower extremity venous stasis ulcers, cellulitis, mainly over the left medial malleolus with increasing swelling. Chronic lower extremity venous stasis ulcers with history of debridement on the right side. Hypertension Hyperlipidemia History of SVT GERD History of multiple sclerosis with right lower extremity paralysis. Uses walker. Previous history of smoking DVT prophylaxis with heparin subcu Plan: patient was started on heparin drip. Transitioned to oral anticoagulation. Patient was started on antibiotics in the form of cefepime. Cefazolin has been discontinued.. Blood cultures negative. Wound cultures grew staph aureus and Pseudomonas.. Vascular surgery and ID is following.. Continue with aspirin and Plavix and blood pressure medications. Pain management with [place]. Dilaudid IV as needed. Continue to follow closely. Prognosis guarded at this time. Time with Patient: Greater than 30
[2020-12-23 13:24] LABS: African American GFR (CKD) 127.6 (60.0-200.0); Anion Gap 11.4 mmol/L (4.00-12.00); Calcium 9.5 mg/dL (8.7-10.3); Carbon Dioxide 21.6 mmol/L (21.6-31.8); Non-African American GFR(CKD) 110.1 (60.0-200.0); Potassium 4.3 mmol/L (3.5-5.5)
--- NOTE | 2020-12-23 17:29 | PN ---
PROGRESS NOTE DATE OF SERVICE: 12/23/2020. REASON FOR FOLLOWUP: Bilateral lower extremity venous stasis ulcer and cellulitis the right. INTERVAL HISTORY: Patient is currently afebrile. The patient is breathing comfortably. Denies having any chest pain. No shortness of breath. No cough. No abdominal pain. No diarrhea. Still complains of feeling weak. PHYSICAL EXAMINATION: Blood pressure 122/71, pulse of 102. Temperature 99.1. General description is a middle- aged male up in the chair in no distress. Respiratory system: Unlabored breathing, clear to auscultation anteriorly. Heart S1, S2. Regular rate and rhythm. Abdomen soft, no tenderness. Left leg is currently dressed. No drainage on the dressing. LABS: Hemoglobin 10.1, white count 7.2, BUN of 25, creatinine 0.6. Culture with Staph aureus and Pseudomonas. DIAGNOSTIC IMPRESSION AND PLAN: Patient with bilateral lower extremity ulcers and secondary cellulitis of the right. Culture with MSSA and Pseudomonas. Patient is covered with cefepime. Plan to finish therapy with oral Cipro and Keflex on discharge. Local care with Aquacel silver dressing. Continue supportive care. MMODL / IJN: [id number] /
[2020-12-23] MEDS: HYDROmorphone 0.5 MG/0.5 ML SYRINGE IVP PRN (19:57)
[2020-12-23] MEDS: PRAVASTATIN SODIUM 40 MG TAB PO SCH (21:39)
[2020-12-23] MEDS: ALPRAZolam 0.5 MG TAB PO PRN (21:40)
[2020-12-24] MEDS: CEFEPIME 2 GM in SODIUM CHLORIDE 0.9% 100 ML IVPB SCH ×3 (00:08→15:23)
[2020-12-24] MEDS: HYDROmorphone 0.5 MG/0.5 ML SYRINGE IVP PRN ×3 (01:12→17:29)
[2020-12-24] MEDS: HYDROcodone/APAP 5-325MG 1 EACH TAB PO PRN ×3 (05:22→19:41)
[2020-12-24] MEDS: BACLOFEN 10 MG TAB PO SCH ×3 (07:51→21:34)
[2020-12-24] MEDS: lisinopriL 5 MG TAB PO SCH (07:51)
[2020-12-24] MEDS: APIXABAN 5 MG TAB PO SCH ×2 (07:51→21:34)
[2020-12-24] MEDS: ASPIRIN 81 MG PO SCH (07:51)
[2020-12-24] MEDS: CLOPIDOGREL 75 MG TAB PO SCH (07:52)
[2020-12-24] MEDS: DOCUSATE 100 MG CAP PO SCH ×2 (12:57→21:34)
--- NOTE | 2020-12-24 19:31 | PN ---
PROGRESS NOTE DATE OF SERVICE: 12/24/2020 REASON FOR FOLLOWUP: Left leg ulcer and cellulitis. INTERVAL HISTORY: Patient is afebrile. The patient is breathing comfortably. Denies having any chest pain, shortness of breath, abdominal pain, or any worsening pain. PHYSICAL EXAMINATION: Blood pressure 132/74, pulse of 112, temperature 98.2. She is 99% on room air. General description is a middle-aged female up in the chair in no distress. Respiratory system unlabored breathing, clear to auscultation anteriorly. Heart S1, S2. Regular rate and rhythm. Abdomen soft, no tenderness. Left leg is currently dressed, no drainage on dressing. LABS: Hemoglobin is 10.9, white count 7.2, BUN of 27, creatinine 0.6. DIAGNOSTIC IMPRESSION AND PLAN: Patient with left lower extremity ulcers and cellulitis. Culture with MSSA, Pseudomonas. Patient is covered with cefepime local care with Aquacel dressing. Finish therapy with oral antibiotics. Continue supportive care. MMODL / IJN: [id number] /
[2020-12-24] MEDS: PRAVASTATIN SODIUM 40 MG TAB PO SCH (21:34)
[2020-12-24] MEDS: ALPRAZolam 0.5 MG TAB PO PRN (21:34)
[2020-12-25] MEDS: CEFEPIME 2 GM in SODIUM CHLORIDE 0.9% 100 ML IVPB SCH ×4 (00:05→23:47)
[2020-12-25] MEDS: HYDROmorphone 0.5 MG/0.5 ML SYRINGE IVP PRN (04:43)
[2020-12-25] MEDS: ASPIRIN 81 MG PO SCH (07:45)
[2020-12-25] MEDS: lisinopriL 5 MG TAB PO SCH (07:45)
[2020-12-25] MEDS: CLOPIDOGREL 75 MG TAB PO SCH (07:45)
[2020-12-25] MEDS: APIXABAN 5 MG TAB PO SCH ×2 (07:45→21:02)
[2020-12-25] MEDS: DOCUSATE 100 MG CAP PO SCH ×2 (07:45→21:02)
[2020-12-25] MEDS: BACLOFEN 10 MG TAB PO SCH ×3 (07:45→21:02)
[2020-12-25] MEDS: HYDROcodone/APAP 5-325MG 1 EACH TAB PO PRN ×3 (15:21→23:51)
--- NOTE | 2020-12-25 19:37 | PN ---
PROGRESS NOTE DATE OF SERVICE: 12/25/2020 REASON FOR FOLLOWUP: Left leg wound and cellulitis. INTERVAL HISTORY: Patient is currently afebrile. The patient is feeling better today. Breathing comfortably. Denies having any chest pain. No shortness of breath or cough. No abdominal pain. Pain to the left leg is currently controlled. PHYSICAL EXAMINATION: Blood pressure 110/63 with a pulse of 111. Temperature 98.5. He is 98% on room air. General description is a middle-aged male up in the chair in no distress. Respiratory system: Unlabored breathing, clear to auscultation anteriorly. Heart S1, S2. Regular rate and rhythm. Abdomen soft, no tenderness. Left leg is currently dressed up. No obvious drainage on the dressing. LABS: No new labs have been obtained today. DIAGNOSTIC IMPRESSION AND PLAN: Patient with left leg wound and cellulitis. Culture with Pseudomonas and MSSA. Patient on cefepime. Finish therapy with oral Keflex and Cipro. Local care with Aquacel dressing and close outpatient followup. MMODL / IJN: [id number] /
[2020-12-25] MEDS: PRAVASTATIN SODIUM 40 MG TAB PO SCH (21:02)
--- NOTE | 2020-12-26 01:09 | P.PN ---
Subjective Progress Note Date: 12/23/20 Principal diagnosis: Left lower extremity DVT Left foot venostasis ulcer Patient is a 60-year-old male with a known history of hypertension, hyperlipidemia, history of SVT, chronic left lower extremity wound infection due to venous stasis and other medical problems presents to ER with complaints of left leg swelling redness and pain and worsening wound infection. Patient foll ows with Dr. Dockery at the wound care center and underwent debridement of the right lower extremity previously. Patient was complaining of left lower extremity wound infection on the medial aspect of the ankle and multiple blisters and increased swelling. No complaints of chest pain or shortness with. No nausea vomiting abdominal pain or diarrhea. X-ray of the ankle showed generalized soft tissue swelling with a large ulcer around the posterior medial aspect of the ankle. No discrete radiographic evidence for osteomyelitis at this time. Laboratory showed WBC 7.8 hemoglobin 10.0 and platelets 374 Sodium 138 potassium 4.5 chloride 103 BUN 26 and creatinine 0.92 alk phos 178 CRP 21.4 12/20/2020 Patient is currently resting in the bed comfortably. No complaints of chest pain or shortness of breath. Left lower activity ultrasound showed DVT. Patient was started on heparin drip. Otherwise left foot swelling and leg swelling is improving. Patient is on antibiotics. ID is on board. [facility] surgery recommends no surgical intervention at this time. Patient has been afebrile. No complains of fever or chills. 12/21/2020 A rojo is currently resting in the bed comfortably. Left leg swelling is improving. Heparin has been discontinued and patient was started on oral anticoagulation. Continue with IV antibiotics and ID is on board. And on wound care. Patient has been afebrile. No nausea vomiting or abdominal pain or diarrhea. no chest pain or shortness breath. 12/22/2020 Patient is currently sitting in the chair. Awake alert oriented 3. Leg swelling is much improved now. Wound cultures showing MSSA and Pseudomonas. Patient is being continued on cefepime. Continue with local wound care. Continue with oral anti-ablation. ID is on board. Patient has been afebrile. No chest pain or shortness of breath. No nausea vomiting or abdominal pain or diarrhea. Tolerating oral diet. 12/23/2020 Patient is currently resting in the bed comfortably. Awake alert oriented x3. Left lower extremity swelling is much improved. Patient is being continued on antibiotics about 6 PM. Current on local wound care. Continue with anticoagulation due to new onset DVT. Otherwise patient would like to be transferred to rehab. PT OT was consulted. No complaints of chest pain or shortness of breath no fever no chills. No nausea vomiting abdominal pain or diarrhea. Patient is tolerating oral diet. current medications reviewed. Objective - Vital Signs Vital signs: Vital Signs Temp 98.2 F 12/23/20 20:06 Pulse 113 H 12/23/20 20:06 Resp 18 12/23/20 20:06 BP 128/76 12/23/20 20:06 Pulse Ox 100 12/23/20 20:06 Intake & Output 12/23/20 12/23/20 12/24/20 06:59 18:59 06:59 Intake Total 680 Output Total 800 1700 Balance -800 -1020 Weight 105 kg Intake: Oral 680 Output: Urine 800 1700 Other: Voiding Method Urinal Urinal Diaper Diaper - Exam PHYSICAL EXAMINATION: Patient is lying in the bed comfortably, no acute distress, awake alert and oriented.. HEENT: Normocephalic. Neck is supple. Pupils reactive. Nostrils clear. Oral cavity is moist. Neck reveals no JVD, carotid bruits, or thyromegaly. CHEST EXAMINATION: Trachea is central. Symmetrical expansion. Lung jiménez clear to auscultation and percussion. CARDIAC: Normal S1, S2 with no gallops. No murmurs ABDOMEN: Soft. Bowel sounds normal. No organomegaly. No abdominal bruits. Extremities: Patient does have open wound on the left medial ankle region and multiple blisters on the lower extremity. Right foot ulcer is bandaged.. No clubbing or cyanosis Neurologically awake, alert, oriented x3 with well-coordinated movements. No focal deficits noted Skin: No rash or skin lesions. Psychiatric: Coperative. Nonsuicidal Musculoskeletal: No joint swelling or deformity. Normal range of motion. - Labs CBC & Chem 7: 12/23/20 05:46 12/23/20 05:46 Labs: Abnormal Lab Results - Last 24 Hours (Table) 12/23/20 12/23/20 Range/Units 05:46 05:46 RBC 3.62 L (4.30-5.90) m/uL Hgb 10.8 L (13.0-17.5) gm/dL Hct 32.6 L (39.0-53.0) % Plt Count 470 H (150-450) k/uL BUN/Creatinine Ratio 45.00 H (12.00-20.00) Ratio Microbiology - Last 24 Hours (Table) 12/19/20 12:13 Blood Culture - Preliminary Blood No Growth after 96 hours 12/19/20 11:41 Blood Culture - Preliminary Blood No Growth after 96 hours 12/20/20 04:53 Blood Culture - Preliminary Blood No Growth after 72 hours Assessment and Plan Assessment: Left lower extremity DVT Left lower extremity venous stasis ulcers, cellulitis, mainly over the left medial malleolus with increasing swelling. Chronic lower extremity venous stasis ulcers with history of debridement on the right side. Hypertension Hyperlipidemia History of SVT GERD History of multiple sclerosis with right lower extremity paralysis. Uses walker. Previous history of smoking DVT prophylaxis with heparin subcu Plan: patient was started on heparin drip. Transitioned to oral anticoagulation. Patient was started on antibiotics in the form of cefepime. Cefazolin has been discontinued.. Blood cultures negative. Wound cultures grew staph aureus and Pseudomonas.. Vascular surgery and ID is following.. Continue with aspirin and Plavix and blood pressure medications. Pain management with [place]. Dilaudid IV as needed. Continue to follow closely. Prognosis guarded at this time. Time with Patient: Greater than 30
--- NOTE | 2020-12-26 01:10 | P.PN ---
Subjective Progress Note Date: 12/24/20 Principal diagnosis: Left lower extremity DVT Left foot venostasis ulcer Patient is a 60-year-old male with a known history of hypertension, hyperlipidemia, history of SVT, chronic left lower extremity wound infection due to venous stasis and other medical problems presents to ER with complaints of left leg swelling redness and pain and worsening wound infection. Patient foll ows with Dr. Dockery at the wound care center and underwent debridement of the right lower extremity previously. Patient was complaining of left lower extremity wound infection on the medial aspect of the ankle and multiple blisters and increased swelling. No complaints of chest pain or shortness with. No nausea vomiting abdominal pain or diarrhea. X-ray of the ankle showed generalized soft tissue swelling with a large ulcer around the posterior medial aspect of the ankle. No discrete radiographic evidence for osteomyelitis at this time. Laboratory showed WBC 7.8 hemoglobin 10.0 and platelets 374 Sodium 138 potassium 4.5 chloride 103 BUN 26 and creatinine 0.92 alk phos 178 CRP 21.4 12/20/2020 Patient is currently resting in the bed comfortably. No complaints of chest pain or shortness of breath. Left lower activity ultrasound showed DVT. Patient was started on heparin drip. Otherwise left foot swelling and leg swelling is improving. Patient is on antibiotics. ID is on board. [facility] surgery recommends no surgical intervention at this time. Patient has been afebrile. No complains of fever or chills. 12/21/2020 A rojo is currently resting in the bed comfortably. Left leg swelling is improving. Heparin has been discontinued and patient was started on oral anticoagulation. Continue with IV antibiotics and ID is on board. And on wound care. Patient has been afebrile. No nausea vomiting or abdominal pain or diarrhea. no chest pain or shortness breath. 12/22/2020 Patient is currently sitting in the chair. Awake alert oriented 3. Leg swelling is much improved now. Wound cultures showing MSSA and Pseudomonas. Patient is being continued on cefepime. Continue with local wound care. Continue with oral anti-ablation. ID is on board. Patient has been afebrile. No chest pain or shortness of breath. No nausea vomiting or abdominal pain or diarrhea. Tolerating oral diet. 12/23/2020 Patient is currently resting in the bed comfortably. Awake alert oriented x3. Left lower extremity swelling is much improved. Patient is being continued on antibiotics about 6 PM. Current on local wound care. Continue with anticoagulation due to new onset DVT. Otherwise patient would like to be transferred to rehab. PT OT was consulted. No complaints of chest pain or shortness of breath no fever no chills. No nausea vomiting abdominal pain or diarrhea. Patient is tolerating oral diet. 12/24/2020 Patient is currently resting in the bed comfortably. Awake and 1x3. Participating in physical therapy. Continue on IV antibiotics in the form of cefepime. Continue with anticoagulation. Denies any chest pain or shortness breath. Leg swelling is much improved. Continue on wound care. current medications reviewed. Objective - Vital Signs Vital signs: Vital Signs Temp 98.2 F 12/24/20 20:11 Pulse 83 12/24/20 20:11 Resp 16 12/24/20 20:11 BP 132/72 12/24/20 20:11 Pulse Ox 98 12/24/20 20:11 Intake & Output 12/24/20 12/24/20 12/25/20 06:59 18:59 06:59 Intake Total 100 Output Total 1050 Balance 100 -1050 Intake: Intake, IV Titration 100 Amount Cefepime 2 gm In Sodium 100 Chloride 0.9% 100 ml @ 25 mls/hr IVPB Q8HR [facility] Rx# :[id number] Output: Urine 1050 Other: Voiding Method Bedside Commode Bedside Commode Urinal Urinal - Exam PHYSICAL EXAMINATION: Patient is lying in the bed comfortably, no acute distress, awake alert and oriented.. HEENT: Normocephalic. Neck is supple. Pupils reactive. Nostrils clear. Oral cavity is moist. Neck reveals no JVD, carotid bruits, or thyromegaly. CHEST EXAMINATION: Trachea is central. Symmetrical expansion. Lung jiménez clear to auscultation and percussion. CARDIAC: Normal S1, S2 with no gallops. No murmurs ABDOMEN: Soft. Bowel sounds normal. No organomegaly. No abdominal bruits. Extremities: Patient does have open wound on the left medial ankle region and multiple blisters on the lower extremity. Right foot ulcer is bandaged.. No clubbing or cyanosis Neurologically awake, alert, oriented x3 with well-coordinated movements. No focal deficits noted Skin: No rash or skin lesions. Psychiatric: Coperative. Nonsuicidal Musculoskeletal: No joint swelling or deformity. Normal range of motion. - Labs CBC & Chem 7: 12/23/20 05:46 12/23/20 05:46 Labs: Microbiology - Last 24 Hours (Table) 12/19/20 12:13 Blood Culture - Preliminary Blood No Growth after 120 hours 12/19/20 11:41 Blood Culture - Preliminary Blood No Growth after 120 hours 12/20/20 04:53 Blood Culture - Preliminary Blood No Growth after 96 hours Assessment and Plan Assessment: Left lower extremity DVT Left lower extremity venous stasis ulcers, cellulitis, mainly over the left medial malleolus with increasing swelling. Chronic lower extremity venous stasis ulcers with history of debridement on the right side. Hypertension Hyperlipidemia History of SVT GERD History of multiple sclerosis with right lower extremity paralysis. Uses walker. Previous history of smoking DVT prophylaxis with heparin subcu Plan: patient was started on heparin drip. Transitioned to oral anticoagulation. Patient was started on antibiotics in the form of cefepime. Cefazolin has been discontinued.. Blood cultures negative. Wound cultures grew staph aureus and Pseudomonas.. Vascular surgery and ID is following.. Continue with aspirin and Plavix and blood pressure medications. Pain management with [place]. Dilaudid IV as needed. Continue to follow closely. Prognosis guarded at this time. Time with Patient: Greater than 30
--- NOTE | 2020-12-26 01:11 | P.PN ---
Subjective Progress Note Date: 12/25/20 Principal diagnosis: Left lower extremity DVT Left foot venostasis ulcer Patient is a 60-year-old male with a known history of hypertension, hyperlipidemia, history of SVT, chronic left lower extremity wound infection due to venous stasis and other medical problems presents to ER with complaints of left leg swelling redness and pain and worsening wound infection. Patient foll ows with Dr. Dockery at the wound care center and underwent debridement of the right lower extremity previously. Patient was complaining of left lower extremity wound infection on the medial aspect of the ankle and multiple blisters and increased swelling. No complaints of chest pain or shortness with. No nausea vomiting abdominal pain or diarrhea. X-ray of the ankle showed generalized soft tissue swelling with a large ulcer around the posterior medial aspect of the ankle. No discrete radiographic evidence for osteomyelitis at this time. Laboratory showed WBC 7.8 hemoglobin 10.0 and platelets 374 Sodium 138 potassium 4.5 chloride 103 BUN 26 and creatinine 0.92 alk phos 178 CRP 21.4 12/20/2020 Patient is currently resting in the bed comfortably. No complaints of chest pain or shortness of breath. Left lower activity ultrasound showed DVT. Patient was started on heparin drip. Otherwise left foot swelling and leg swelling is improving. Patient is on antibiotics. ID is on board. [facility] surgery recommends no surgical intervention at this time. Patient has been afebrile. No complains of fever or chills. 12/21/2020 A rojo is currently resting in the bed comfortably. Left leg swelling is improving. Heparin has been discontinued and patient was started on oral anticoagulation. Continue with IV antibiotics and ID is on board. And on wound care. Patient has been afebrile. No nausea vomiting or abdominal pain or diarrhea. no chest pain or shortness breath. 12/22/2020 Patient is currently sitting in the chair. Awake alert oriented 3. Leg swelling is much improved now. Wound cultures showing MSSA and Pseudomonas. Patient is being continued on cefepime. Continue with local wound care. Continue with oral anti-ablation. ID is on board. Patient has been afebrile. No chest pain or shortness of breath. No nausea vomiting or abdominal pain or diarrhea. Tolerating oral diet. 12/23/2020 Patient is currently resting in the bed comfortably. Awake alert oriented x3. Left lower extremity swelling is much improved. Patient is being continued on antibiotics about 6 PM. Current on local wound care. Continue with anticoagulation due to new onset DVT. Otherwise patient would like to be transferred to rehab. PT OT was consulted. No complaints of chest pain or shortness of breath no fever no chills. No nausea vomiting abdominal pain or diarrhea. Patient is tolerating oral diet. 12/24/2020 Patient is currently resting in the bed comfortably. Awake and 1x3. Participating in physical therapy. Continue on IV antibiotics in the form of cefepime. Continue with anticoagulation. Denies any chest pain or shortness breath. Leg swelling is much improved. Continue on wound care. 12/25/2020 Patient is currently ambulating in the hallway with physical therapy. Is intact and oriented x3. No complaints of chest pain or shortness of. Leg swelling is improved. Pain is fairly controlled. No nausea vomiting abdominal pain. No chest pain or shortness of breath. Continue with anticoagulation and antibiotics. Possible discharge to rehab in the next 24 hours. current medications reviewed. Objective - Vital Signs Vital signs: Vital Signs Temp 98.5 F 12/25/20 12:33 Pulse 111 H 12/25/20 12:33 Resp 18 12/25/20 12:33 BP 110/73 12/25/20 12:33 Pulse Ox 98 12/25/20 12:33 Intake & Output 12/25/20 12/25/20 12/26/20 06:59 18:59 06:59 Intake Total 100 Output Total 200 Balance 100 -200 Intake: Intake, IV Titration 100 Amount Cefepime 2 gm In Sodium 100 Chloride 0.9% 100 ml @ 25 mls/hr IVPB Q8HR [facility] Rx# :[id number] Output: Urine 200 Other: Voiding Method Bedside Commode Bedside Commode Urinal Urinal # Voids 2 - Exam PHYSICAL EXAMINATION: Patient is lying in the bed comfortably, no acute distress, awake alert and oriented.. HEENT: Normocephalic. Neck is supple. Pupils reactive. Nostrils clear. Oral cavity is moist. Neck reveals no JVD, carotid bruits, or thyromegaly. CHEST EXAMINATION: Trachea is central. Symmetrical expansion. Lung jiménez clear to auscultation and percussion. CARDIAC: Normal S1, S2 with no gallops. No murmurs ABDOMEN: Soft. Bowel sounds normal. No organomegaly. No abdominal bruits. Extremities: Patient does have open wound on the left medial ankle region and multiple blisters on the lower extremity. Right foot ulcer is bandaged.. No clubbing or cyanosis Neurologically awake, alert, oriented x3 with well-coordinated movements. No focal deficits noted Skin: No rash or skin lesions. Psychiatric: Coperative. Nonsuicidal Musculoskeletal: No joint swelling or deformity. Normal range of motion. - Labs CBC & Chem 7: 12/23/20 05:46 12/23/20 05:46 Labs: Microbiology - Last 24 Hours (Table) 12/19/20 12:13 Blood Culture - Final Blood No Growth after 144 hours 12/19/20 11:41 Blood Culture - Final Blood No Growth after 144 hours 12/20/20 04:53 Blood Culture - Preliminary Blood No Growth after 120 hours Assessment and Plan Assessment: Acute Left lower extremity DVT Left lower extremity venous stasis ulcers, cellulitis, mainly over the left m edial malleolus with increasing swelling. Chronic lower extremity venous stasis ulcers with history of debridement on the right side. Hypertension Hyperlipidemia History of SVT GERD History of multiple sclerosis with right lower extremity paralysis. Uses walker. Previous history of smoking DVT prophylaxis with heparin subcu Plan: patient was started on heparin drip. Transitioned to oral anticoagulation. Patient was started on antibiotics in the form of cefepime. Cefazolin has been discontinued.. Blood cultures negative. Wound cultures grew staph aureus and Pseudomonas.. Vascular surgery and ID is following.. Continue with aspirin and Plavix and blood pressure medications. Pain management with [place]. Dilaudid IV as needed. Continue to follow closely. Prognosis guarded at this time.
[2020-12-26 05:29] LABS: Basophils % (A) 1 %; Eosinophils # (A) 0.1 k/uL (0-0.7); Eosinophils % (A) 1 %; HCT 30.8 % (39.0-53.0); HGB 10.2 gm/dL (13.0-17.5); Lymphocytes # (A) 1.2 k/uL (1.0-4.8); Lymphocytes % (A) 15 %; MCHC 33.1 g/dL (31.0-37.0); MCV 90.6 fL (80.0-100.0); Mean Platelet Volume 6.8; Monocytes # (A) 0.2 k/uL (0-1.0); Monocytes % (A) 3 %; Neutrophils # (A) 6.3 k/uL (1.3-7.7); Neutrophils % (A) 78 %; Platelet Count 407 k/uL (150-450); RDW 14.3 % (11.5-15.5)
[2020-12-26] MEDS: APIXABAN 5 MG TAB PO SCH (08:12)
[2020-12-26] MEDS: DOCUSATE 100 MG CAP PO SCH (08:12)
[2020-12-26] MEDS: BACLOFEN 10 MG TAB PO SCH ×2 (08:12→15:47)
[2020-12-26] MEDS: CEFEPIME 2 GM in SODIUM CHLORIDE 0.9% 100 ML IVPB SCH (08:12)
[2020-12-26] MEDS: ASPIRIN 81 MG PO SCH (08:12)
[2020-12-26] MEDS: [UNRECOGNIZED DRUG - OTHER] SQ SCH (08:12)
[2020-12-26] MEDS: lisinopriL 5 MG TAB PO SCH (08:13)
[2020-12-26] MEDS: CLOPIDOGREL 75 MG TAB PO SCH (08:13)
[2020-12-26] MEDS: HYDROcodone/APAP 5-325MG 1 EACH TAB PO PRN ×2 (08:21→13:47)
[2020-12-26] MEDS ORDERED: COLLAGENASE 250 UNIT/GM OINTMENT 30 GM TUBE TOPICAL SCH (09:15)
[2020-12-26 09:44] LABS: African American GFR (CKD) 137.5 (60.0-200.0); Anion Gap 9.5 mmol/L (4.00-12.00); Calcium 9.4 mg/dL (8.7-10.3); Carbon Dioxide 22.5 mmol/L (21.6-31.8); Non-African American GFR(CKD) 118.6 (60.0-200.0); Potassium 3.8 mmol/L (3.5-5.5)
[2020-12-26] MEDS: HYDROmorphone 0.5 MG/0.5 ML SYRINGE IVP PRN (10:59)
[2020-12-26] MEDS: CEPHALEXIN 500 MG CAP PO SCH ×2 (10:59→13:36)
--- NOTE | 2020-12-26 13:27 | PN ---
PROGRESS NOTE DATE OF SERVICE: 12/26/2020. REASON FOR FOLLOWUP: Is left leg wound and cellulitis The patient is afebrile. The patient is breathing comfortably denies any chest pain, cough, no abdominal pain or any worsening pain to the left ankle and leg wound area. PHYSICAL EXAMINATION: Blood pressure 122/66, pulse of 69, temperature 98.4. He is 100% on room air. General description is a middle-aged male lying in bed in no distress. Respiratory system: Unlabored breathing, clear to auscultation anteriorly. Heart S1, S2. Regular rate and rhythm. Abdomen soft, no tenderness. The left medial lower leg wound is deep with some slough tissue. However, the bone is not exposed. Surrounding redness has improved. LABS: Hemoglobin is 10.1, white count 8.0. BUN of 29, creatinine 0.5. DIAGNOSTIC IMPRESSION AND PLAN: Patient with left leg wound with secondary cellulitis. Wound has gone deeper since admission. However, the bone is not exposed with culture positive for MSSA and Pseudomonas. Recommend cefepime 2 g q.8h for 2 weeks. [facility] outpatient followup. Discussed with the patient as well as with the admitting physician working on discharge. MMODL / IJN: [id number] /
--- NOTE | 2020-12-26 15:19 | P.DS ---
Providers Date of admission: 12/19/20 12:41 Expected date of discharge: 12/26/20 Attending physician: Sean Antoine Consults: 12/20/20 01:15 Consult Physician Routine Consulting Provider: Bryan Zazueta Consult Reason/Comments: LLE cellulitis Do you want consulting provider notified?: Yes, Notify in am Primary care physician: Mor Timmons [facility] Course: History of presenting complaint: 60-year-old male , patient of Dr. Mor Timmons with a known history of hypertension, hyperlipidemia, history of SVT, chronic left lower extremity wound infection due to venous stasis and other medical problems presents to ER with complaints of left leg swelling redness and pain and worsening wound infection. Patient follows with Dr. Dockery at the wound care center and underwent debrid ement of the right lower extremity previously. Patient was complaining of left lower extremity wound infection on the medial aspect of the ankle and multiple blisters and increased swelling. No complaints of chest pain or shortness with. No nausea vomiting abdominal pain or diarrhea. X-ray of the ankle showed generalized soft tissue swelling with a large ulcer around the posterior medial aspect of the ankle. No discrete radiographic evidence for osteomyelitis at this time. Wound culture was positive for MSSA and pseudomonas. Local wound care was done with [facility]. Given IV cefepime. Left lower extremity ultrasound confirmed DVT. Started IV heparin. Seen by vascular surgery. For now intervention. 12/20/2020 Patient is currently resting in the bed comfortably. No complaints of chest pain or shortness of breath. Left lower activity ultrasound showed DVT. Patient was started on heparin drip. Otherwise left foot swelling and leg swelling is improving. Patient is on antibiotics. ID is on board. [facility] surgery recommends no surgical intervention at this time. Patient has been afebrile. No complains of fever or chills. 12/21/2020 A rojo is currently resting in the bed comfortably. Left leg swelling is improving. Heparin has been discontinued and patient was started on oral anticoagulation. Continue with IV antibiotics and ID is on board. And on wound care. Patient has been afebrile. No nausea vomiting or abdominal pain or diarrhea. no chest pain or shortness breath. 12/22/2020 Patient is currently sitting in the chair. Awake alert oriented 3. Leg swelling is much improved now. Wound cultures showing MSSA and Pseudomonas. Patient is being continued on cefepime. Continue with local wound care. Continue with oral anti-ablation. ID is on board. Patient has been afebrile. No chest pain or shortness of breath. No nausea vomiting or abdominal pain or diarrhea. Tolerating oral diet. 12/23/2020 Patient is currently resting in the bed comfortably. Awake alert oriented x3. Left lower extremity swelling is much improved. Patient is being continued on antibiotics about 6 PM. Current on local wound care. Continue with anticoagulation due to new onset DVT. Otherwise patient would like to be transferred to rehab. PT OT was consulted. No complaints of chest pain or shortness of breath no fever no chills. No nausea vomiting abdominal pain or diarrhea. Patient is tolerating oral diet. 12/24/2020 Patient is currently resting in the bed comfortably. Awake and 1x3. Participating in physical therapy. Continue on IV antibiotics in the form of cefepime. Continue with anticoagulation. Denies any chest pain or shortness breath. Leg swelling is much improved. Continue on wound care. 12/25/2020 Patient is currently ambulating in the hallway with physical therapy. Is intact and oriented x3. No complaints of chest pain or shortness of. Leg swelling is improved. Pain is fairly controlled. No nausea vomiting abdominal pain. No chest pain or shortness of breath. Continue with anticoagulation and antibiotics. Possible discharge to rehab in the next 24 hours. Today: Patient feeling well. Oral intake good. Pain well controlled. Had a bowel movement. It was discussed with the patient that patient will be holding EXTAVIA, during his rehab because the medicines that he takes not be covered during rehab. Agreeable to the same. Discussed with social media executive. Discussed with Dr. Wilcox from ID: Patient to get a midline and will receive 3 weeks of IV cefepime. Discussion and discharge planning more than 35 minutes. On examination: VITAL SIGNS: 98.4, 79, 20, 1 22 x 66, 100% room air GENERAL APPEARANCE: Reclining in bed, comfortable. HEENT: Normal external appearance of nose and ear. Oral cavity normal EYES: Pupils equal. Conjunctiva normal. NECK: JVD not raised. Mass not palpable. RESPIRATORY: Respiratory effort normal. Lungs clear to auscultation. CARDIOVASCULAR: First and second sounds normal. No edema. ABDOMEN: Soft. Liver and spleen not palpable. No tenderness. No mass palpable. PSYCHIATRY: Alert and oriented x3. Mood and affect normal. EXTREMITIES: Dressing on both lower extremity. Investigations: WBC 8 hemoglobin 10.2 platelets 407 potassium 3.8 creatinine 0.5 Wound culture: Staphylococcus aureus, MSSA, pseudomonas aeruginosa. Blood cultures: Negative Ultrasound Doppler: Left lower extremity: Positive for DVT distal femoral vein through proximal calf veins X-ray ankle left: Generalized soft tissue swelling with a large ulcer along the posteromedial aspect. Assessment and plan: -Acute Left lower extremity DVT IV heparin/discontinued. Eliquis -Acute on chronic Left lower extremity venous stasis ulcers, cellulitis, mainly over the left medial malleolus with increasing swelling. With cultures positive for MSSA and Pseudomonas aeruginosa. IV cefepime for 2 more weeks. medihoney -Chronic lower extremity venous stasis ulcers with history of debridement on the right side. Dressing changes -Essential Hypertension Zestril -Hyperlipidemia Pravachol -GERD Pepcid when necessary -Chronic multiple sclerosis with right lower extremity paralysis. Extavia: Will be held for the duration of inpatient rehab because of cost issues -Chronic muscle spasm On baclofen Disposition: ECF/[facility] Patient Condition at Discharge: Fair Plan - Discharge Summary Discharge Rx Participant: No New Discharge Prescriptions: New Collagenase [Santyl] 1 applic TOPICAL DAILY applic Apixaban [Eliquis Starter Pack (for VTE)] 0 mg PO DIRECTED 30 Days #1 pack Cefepime [Maxipime] 2 gm IVPB Q8H #42 bag Continue ALPRAZolam [Xanax] 0.5 mg PO BID PRN PRN Reason: Anxiety Baclofen 10 mg PO TID lisinopriL [Zestril] 5 mg PO DAILY Gabapentin [Neurontin] 600 mg PO 5XD Ferrous Sulfate [Feosol] 325 mg PO DAILY Pravastatin Sodium [Pravachol] 40 mg PO HS Multivitamins, Thera [Multivitamin (formulary)] 1 tab PO DAILY Aspirin EC [Ecotrin Low Dose] 81 mg PO DAILY HYDROcodone/APAP 5-325MG [Montalba 5-325] 1 tab PO Q6H PRN PRN Reason: Pain Extavia 1 dose INJ MOWEFR Fluticasone Nasal [place]mar [Flonase Nasal [place]] 2 spr EA NOSTRIL DAILY PRN PRN Reason: Allergy Symptoms Discontinued hydroCHLOROthiazide 50 mg PO DAILY Diclofenac Sodium [Voltaren] 75 mg PO BID PRN PRN Reason: Pain Clopidogrel [Plavix] 75 mg PO DAILY #90 tab Sulfamethox-Tmp 800-160Mg [Bactrim DS 800-160 mg] 1 tab PO Q12HR Discharge Medication List ALPRAZolam [Xanax] 0.5 mg PO BID PRN 02/19/16 [History] Aspirin EC [Ecotrin Low Dose] 81 mg PO DAILY 02/19/16 [History] Baclofen 10 mg PO TID 02/19/16 [History] Ferrous Sulfate [Feosol] 325 mg PO DAILY 02/19/16 [History] Gabapentin [Neurontin] 600 mg PO 5XD 02/19/16 [History] Multivitamins, Thera [Multivitamin (formulary)] 1 tab PO DAILY 02/19/16 [History] Pravastatin Sodium [Pravachol] 40 mg PO HS 02/19/16 [History] lisinopriL [Zestril] 5 mg PO DAILY 02/19/16 [History] Extavia 1 dose INJ MOWEFR 12/19/20 [History] Fluticasone Nasal [place] [Flonase Nasal [place]] 2 spr EA NOSTRIL DAILY PRN 12/19/20 [History] HYDROcodone/APAP 5-325MG [Montalba 5-325] 1 tab PO Q6H PRN 12/19/20 [History] Apixaban [Eliquis Starter Pack (for VTE)] 0 mg PO DIRECTED 30 Days #1 pack 12/23/20 [Rx] Cefepime [Maxipime] 2 gm IVPB Q8H #42 bag 12/26/20 [Rx] Collagenase [Santyl] 1 applic TOPICAL DAILY applic 12/26/20 [Rx] Follow up Appointment(s)/Referral(s): Mor Timmons MD [Primary Care Provider] - As Needed Activity/Diet/Wound Care/Special Instructions: Apply Santyl to left medial foot ulcer, saline moistened gauze, dry gauze, and rolled gauze secure with paper tape. Apply zinc barrier cream to all reddened areas. Wrap with David wrap. Change daily. Apply Aquacell AG to left posterior calf open area, saline moistened gauze, dry gauze and wrap with gauze roll and david wrap-change daily. Apply santyl to right foot digits, saline moist gauze, dry gauze, rolled gauze and secure with tape. Change daily. Discharge Disposition: TRANSFER TO SNF/ECF
[2020-12-26 16:35] VITALS: BP 105/66; PULSE 89; RESP 17; TEMP 97.8
== END 2020-12-26 18:20 | DRG 603 ==
LOC: EC 10:06 → 4SSUR 12:41 → 3SCARD 12-20 06:21 → 5NMEDONC 12-22 15:45
PROVIDERS: ADMIT Hospitalist; ATTEND Hospitalist
PROC: 05HD33Z Insertion of Infusion Device into Right Cephalic Vein, Percutaneous Approach (ICD-10-PCS; principal; 2020-12-26 15:20)
DX: L03.116 Cellulitis of left lower limb (principal); I82.412 Acute embolism and thrombosis of left femoral vein; I82.4Z2 Acute embolism and thrombosis of unspecified deep veins of left distal lower extremity; L97.323 Non-pressure chronic ulcer of left ankle with necrosis of muscle; L97.823 Non-pressure chronic ulcer of other part of left lower leg with necrosis of muscle; I83.223 Varicose veins of left lower extremity with both ulcer of ankle and inflammation; L97.512 Non-pressure chronic ulcer of other part of right foot with fat layer exposed; I70.248 Atherosclerosis of native arteries of left leg with ulceration of other part of lower leg; I70.235 Atherosclerosis of native arteries of right leg with ulceration of other part of foot; G35 Multiple sclerosis; G83.11 Monoplegia of lower limb affecting right dominant side; B95.61 Methicillin susceptible Staphylococcus aureus infection as the cause of diseases classified elsewhere; B96.5 Pseudomonas (aeruginosa) (mallei) (pseudomallei) as the cause of diseases classified elsewhere; I10 Essential (primary) hypertension; E78.5 Hyperlipidemia, unspecified; K21.9 Gastro-esophageal reflux disease without esophagitis; M62.838 Other muscle spasm; Z79.82 Long term (current) use of aspirin; Z79.02 Long term (current) use of antithrombotics/antiplatelets; Z79.899 Other long term (current) drug therapy; Z90.89 Acquired absence of other organs; Z87.39 Personal history of other diseases of the musculoskeletal system and connective tissue; Z86.79 Personal history of other diseases of the circulatory system; Z87.891 Personal history of nicotine dependence; Z98.890 Other specified postprocedural states; Z88.0 Allergy status to penicillin; Z88.2 Allergy status to sulfonamides; Z82.49 Family history of ischemic heart disease and other diseases of the circulatory system; Z82.5 Family history of asthma and other chronic lower respiratory diseases; Z83.3 Family history of diabetes mellitus; Z83.79 Family history of other diseases of the digestive system
CPT/HCPCS: 36410; 36415; 76937; 80048; 80053; 80202; 82565; 83605; 85025; 85610; 85730; 86140; 87040; 87070; 87075; 87077; 87186; 87205; 99284

== ENCOUNTER → 2024-03-25 | Outpatient (CLI) | payer MEDICARE, OTHER ==
--- NOTE | 2024-03-25 11:06 | US ---
EXAMINATION TYPE: US arterial LE single level DATE OF EXAM: 03/25/2024 10:41 AM CLINICAL INDICATION: Male, 63 years old with history of L97.512 NON PRESSURE CHRONIC ULCER OF OTHER P ART OF RIGHT LO; Non healing wounds right ankle and top of foot x 5 years, [facility] patient, right leg stent, left popliteal chronic DVT, patient on blood thinners TECHNIQUE: Systolic pressures were taken of the upper and lower extremity arteries with ankle-brachia l indices and toe brachial indices calculated bilaterally. History of: Smoker: Current Hypertension: Yes Diabetic: No Hyperlipidemia: Yes TIA/CVA: No Previous Vascular Surgery: Yes RI: No Vascular Ulcers: Yes Claudication: No Gangrene: No FINDINGS: Doppler Waveforms: Right: Left: Monophasic Brachial Artery systolic pressure: Right systolic pressure: 127 Left systolic pressure: 125 Posterior Tibial artery systolic pressure: Right: deferred due to bandage Left: 135 Dorsalis Pedis artery systolic pressure: Right: 61 Left: 110 Ankle-Brachial Indices: Right: 0.48 Left: 1.06 (Vessel hardening > 1.4; Normal 0.9 - 1.4, Moderate 0.7 - 0.9, Severe 0.5-0.7) IMPRESSION: Severe right peripheral vascular disease by ankle brachial index, normal left ankle-brachial index. [facility], , 03/25/2024 11:04 AM
--- NOTE | 2024-03-25 11:08 | US ---
EXAMINATION TYPE: US venous doppler duplex LE BI LOWER EXTREMITY VENOUS INSUFFICIENCY DATE OF EXAM: 03/25/2024 10:43 AM COMPARISON: 04/08/2020 CLINICAL INDICATION: Male, 63 years old with history of L97.512 NON PRESSURE CHRONIC ULCER OF OTHER P ART OF RIGHT LO; Non healing wound right ankle and foot x 5 years, history of left popliteal DVT, pat ient on blood thinners TECHNIQUE: Grayscale, color Doppler and spectral Doppler sonography of the lower extremity veins. FINDINGS: SIDE PERFORMED: Bilateral 1) Color flow is present and patency is documented in the following vessels. No DVT or SVT is noted . Common Femoral Vein Deep Femoral Vein Femoral Vein Popliteal Vein Proximal Calf Veins Greater Saph Vein Upper Small Saph Vein Insufficiency study only done on right leg 2) There is venous reflux noted at the following venous levels: right - none 3) Incompetent perforators are noted at these levels: right - none Left leg - chronic clot seen in popliteal vein IMPRESSION: 1. 2. No evidence for venous insufficiency. 3. 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 [facility], , 03/25/2024 11:06 AM
== END | disposition home or self-care (01) ==
LOC: RADUSWWP 09:13
PROVIDERS: ATTEND Thoracic Surgery (Cardiothoracic Vascular Surgery)
CPT/HCPCS: 93922; 93970

== ENCOUNTER 2024-11-04 10:48 | Day surgery (SDC) | payer MEDICARE, OTHER ==
[~2024-11-04 10:48] MED LIST changes: -DEXAMETHASONE SOD PHOSPHATE 4 MG/ML 1 ML VIAL IV ONE; -LACTATED RINGERS 1,000 ML IV SCH; -LIDOCAINE 1% (10MG/ML) FOR IV START INTRADERMA PRN; -MIDAZOLAM 2 MG/2 ML VIAL IV PRN; -ONDANSETRON 4 MG/2 ML VIAL IVP ONE; -Pre Op ABX Message 1 EACH MISC MISCELLANE ONE; +ceFAZolin 2 GM in DEXTROSE 5% IN WATER 50 ML IVPB PRN
[2024-11-04] MEDS ORDERED: fentaNYL (PF) 50 MCG/ML 2 ML AMP IVP PRN (11:25)
[2024-11-04] MEDS ORDERED: MIDAZOLAM 2 MG/2 ML VIAL IV PRN (11:25)
[2024-11-04] MEDS ORDERED: LIDOCAINE 1% (10MG/ML) FOR IV START INTRADERMA PRN (11:25)
[2024-11-04] MEDS: IV FLUID CONTINUATION 1,000 ML IV ONE (11:47)
[2024-11-04] MEDS: DEXAMETHASONE SOD PHOSPHATE 4 MG/ML 1 ML VIAL IV ONE (11:48)
[2024-11-04] MEDS: ONDANSETRON 4 MG/2 ML VIAL IVP ONE (11:48)
[2024-11-04] MEDS: LACTATED RINGERS 1,000 ML IV SCH (11:49)
[2024-11-04] MEDS: FAMOTIDINE 20 MG/2 ML VIAL IV STA (11:50)
[2024-11-04] MEDS ORDERED: PROPOFOL 10 MG/ML 20 ML VIAL IV ONE (12:05)
[2024-11-04] MEDS ORDERED: fentaNYL (PF) 50 MCG/ML 2 ML AMP ONE (12:05)
[2024-11-04] MEDS ORDERED: MIDAZOLAM 2 MG/2 ML VIAL ONE (12:05)
[2024-11-04] MEDS ORDERED: LIDOCAINE 1% INJ 10MG/ML (20 ML MDV) ONE (12:05)
--- NOTE | 2024-11-04 12:50 | P.OP ---
Date of Procedure: 11/04/24 Preoperative Diagnosis: Nonhealing ulcerations right foot. Postoperative Diagnosis: Same. Procedure(s) Performed: Debridement of 2 separate wounds of the right foot with the aid of curette down to the level of fascia. Implants: None. Anesthesia: OBDULIOA Surgeon: Saurabh Garibay Estimated Blood Loss (ml): 1 Urine output (ml): 0 Pathology: none sent Condition: stable Disposition: no change Indications for Procedure: Patient is a 64-year-old male with a longstanding history of venous insufficiency who has been treated in the wound care center for nonhealing ulcerations of the dorsum of the right foot as well as other wounds of the right lower extremity associated with chronic venous insufficiency. He has 2 wounds of the foot 1 on the dorsal surface and one along the medial malleoli are level. Both demonstrate thick fibrinous deposition throughout however there is no evidence of undermining or tunneling. Patient is now offered surgical debridement to help reset the wound in anticipation of application of skin substitutes and wound VAC as an outpatient. The procedure, risk and benefits were discussed with the patient. All questions were answered to patient satisfaction. Description of Procedure: Patient brought the op room placed in the supine position administered general inhalational anesthesia delivered by the department anesthesiology. Patient's right foot was sterilely prepped and draped in the usual manner. The wound on the dorsum of the foot measured 12 x 2.5 cm in length and width and 3 mm in depth. The wound at the ankle level measured 5.5 x 2 cm in length and width and 2 mm in depth. There is no evidence of undermining or tunneling. Utilizing a curette all fibrinous material from both wounds were debrided down to the level of the fascia. Evidence of capillary growth was noted at the base of both wounds. The wounds were dressed with Adaptic, Curlex and an David wrap. Patient tolerated the procedure well and was taken to the outpatient surgical area in satisfactory and stable condition. Plan - Discharge Summary Discharge Rx Participant: No New Discharge Prescriptions: No Action ALPRAZolam [Xanax] 0.5 mg PO BID PRN PRN Reason: Anxiety Baclofen 10 mg PO TID lisinopriL [Zestril] 5 mg PO DAILY Ferrous Sulfate [Feosol] 325 mg PO DAILY Pravastatin Sodium [Pravachol] 40 mg PO HS Multivitamins, Thera [Multivitamin (formulary)] 1 tab PO DAILY HYDROcodone/APAP 5-325MG [[place] 5-325] 1 tab PO Q6H PRN PRN Reason: Pain Collagenase [Santyl Ointment] 1 applic TOPICAL DAILY applic Apixaban [Eliquis] 5 mg PO BID Gabapentin [Neurontin] 600 mg PO TID #0 Discharge Medication List ALPRAZolam [Xanax] 0.5 mg PO BID PRN 02/19/16 [History] Baclofen 10 mg PO TID 02/19/16 [History] Ferrous Sulfate [Feosol] 325 mg PO DAILY 02/19/16 [History] Multivitamins, Thera [Multivitamin (formulary)] 1 tab PO DAILY 02/19/16 [History] Pravastatin Sodium [Pravachol] 40 mg PO HS 02/19/16 [History] lisinopriL [Zestril] 5 mg PO DAILY 02/19/16 [History] HYDROcodone/APAP 5-325MG [[place] 5-325] 1 tab PO Q6H PRN 12/19/20 [History] Collagenase [Santyl Ointment] 1 applic TOPICAL DAILY applic 12/26/20 [Rx] Gabapentin [Neurontin] 600 mg PO TID #0 12/26/20 [Rx] Apixaban [Eliquis] 5 mg PO BID 11/03/24 [History]
[2024-11-04 12:58] VITALS: TEMP 97
[2024-11-04] MEDS: HYDROmorphone 0.5 MG/0.5 ML SYRINGE IVP PRN (13:00)
[2024-11-04 13:39] VITALS: RESP 16
[2024-11-04] MEDS: HYDROcodone/APAP 5-325MG 1 EACH TAB PO STA (13:43)
[2024-11-04 13:52] VITALS: BP 138/79; PULSE 79
== END 2024-11-04 14:27 | disposition home or self-care (01) ==
LOC: OR 10:48
PROVIDERS: ATTEND Surgery
DX: L97.519 Non-pressure chronic ulcer of other part of right foot with unspecified severity (principal); I87.2 Venous insufficiency (chronic) (peripheral); I73.9 Peripheral vascular disease, unspecified; I47.10 Supraventricular tachycardia, unspecified; K21.9 Gastro-esophageal reflux disease without esophagitis; M19.90 Unspecified osteoarthritis, unspecified site; I10 Essential (primary) hypertension; E78.5 Hyperlipidemia, unspecified; G35 Multiple sclerosis; T14.8XXA Other injury of unspecified body region, initial encounter; G62.9 Polyneuropathy, unspecified; Z86.718 Personal history of other venous thrombosis and embolism; Z95.820 Peripheral vascular angioplasty status with implants and grafts; Z87.891 Personal history of nicotine dependence; Z90.89 Acquired absence of other organs; Z89.232 Acquired absence of left shoulder; Z88.0 Allergy status to penicillin; Z88.2 Allergy status to sulfonamides; Z79.01 Long term (current) use of anticoagulants; Z79.899 Other long term (current) drug therapy
CPT/HCPCS: 11043; 11046; J2250; J1100; J2405; J2003; J3010; J2704; J1171; J1308

== ENCOUNTER 2024-11-16 09:23 | Emergency (ER) | payer MEDICARE, OTHER ==
[2024-11-16 09:41] VITALS: RESP 18
--- NOTE | 2024-11-16 10:23 | ED ---
General Adult HPI - General Chief complaint: Extremity Problem,Nontraumatic Stated complaint: Reji leg swelling Time Seen by Provider: 11/16/24 09:35 Source: patient, RN notes reviewed Mode of arrival: ambulatory Limitations: no limitations - History of Present Illness Initial comments: 64-year-old male presents emergency room with referral from wound care for concerns of bilateral lower extremity edema and pain. Patient states that he underwent debridement of his right lower extremity wound a week ago and today he was at follow-up for wound care they instructed report to emergency department for further evaluation. Patient states that he is currently on 5 mg of Eliquis 2 times a day and been taking this medication as prescribed. He denies known history of blood clots however he is on a blood thinner. He denies chest pain, difficulty breathing, heart palpitations, orthopnea, dyspnea on exertion. - Related Data Home Medications Medication Instructions Recorded Confirmed ALPRAZolam [Xanax] 0.5 mg PO BID PRN 02/19/16 11/04/24 Baclofen 10 mg PO TID 02/19/16 11/03/24 Ferrous Sulfate [Feosol] 325 mg PO DAILY 02/19/16 11/04/24 Multivitamins, Thera [Multivitamin 1 tab PO DAILY 02/19/16 11/03/24 (formulary)] Pravastatin Sodium [Pravachol] 40 mg PO HS 02/19/16 11/03/24 lisinopriL [Zestril] 5 mg PO DAILY 02/19/16 11/04/24 HYDROcodone/APAP 5-325MG [[place] 1 tab PO Q6H PRN 12/19/20 11/04/24 5-325] Apixaban [Eliquis] 5 mg PO BID 11/03/24 11/03/24 Previous Rx's Medication Instructions Recorded Collagenase [Santyl Ointment] 1 applic TOPICAL DAILY applic 12/26/20 Gabapentin [Neurontin] 600 mg PO TID #0 12/26/20 Allergies Allergy/AdvReac Type Severity Reaction Status Date / Time Penicillins Allergy Unknown Verified 11/16/24 09:41 Childhood Sulfa (Sulfonamide AdvReac Rash/Hives Verified 11/16/24 09:41 Antibiotics) Review of Systems ROS Statement: Those systems with pertinent positive or pertinent negative responses have been documented in the HPI. ROS Other: All systems not noted in ROS Statement are negative. Past Medical History Past Medical History: Deep Vein Thrombosis (DVT), GERD/Reflux, Hyperlipidemia, Hypertension, Osteoarthritis (OA), Skin Disorder, Supraventricular Tachycardia (SVT) Additional Past Medical History / Comment(s): [facility] VISIT 05/06/20. PATIENT STATES HE HAS MULTIPLE OPEN SORES ON RIGHT LEG/FOOT, HAS PAIN IN RIGHT LEG AND LEFT FOOT, SWELLING IN LEFT FOOT (HAS WRAPPED IT). HAS HAD TREATMENT AT [facility] FOR RIGHT LEG WOUND IN THE PAST. Muscular Sclerosis, right leg paralyzed knee down, USES WALKER. blood clot being watched cant remember which leg. neuropathy bilateral lower legs History of Any Multi-Drug Resistant Organisms: MRSA Date of last positivie culture/infection: 02/11/23 MDRO Source:: Right Foot Past Surgical History: Tonsillectomy Additional Past Surgical History / Comment(s): right leg angioplasty. (L) shoulder surgery, collar bone surgery. aortogram w/runoff 03/01/20 Past Anesthesia/Blood Transfusion Reactions: No Reported Reaction Past Psychological History: No Psychological Hx Reported Smoking Status: Never smoker Past Alcohol Use History: None Reported Past Drug Use History: Marijuana - Past Family History Mother Family Medical History: Congestive Heart Failure (CHF), COPD, Diabetes Mellitus Father Additional Family Medical History / Comment(s): pancreatitis Brother(s) Additional Family Medical History / Comment(s): General Exam - General Exam Comments Initial Comments: Visual Physical Exam Vital signs reviewed General: Well-appearing, nontoxic, no acute distress. Head: Normocephalic, atraumatic Eyes: PERRLA, EOMI ENT: Airway patent Chest: Nonlabored breathing Skin: No visual rash, normal skin tone Neuro: Alert and oriented 3 Musculoskeletal: No gross abnormalities Limitations: no limitations General appearance: alert, in no apparent distress Neck exam: Present: normal inspection. Absent: tenderness, meningismus, lymphadenopathy Respiratory exam: Present: normal lung sounds bilaterally. Absent: respiratory distress, wheezes, rales, rhonchi, stridor Cardiovascular Exam: Present: regular rate, normal rhythm, normal heart sounds. Absent: systolic murmur, diastolic murmur, rubs, gallop, clicks GI/Abdominal exam: Present: soft, normal bowel sounds. Absent: distended, tenderness, guarding, rebound, rigid Extremities exam: Present: normal inspection, full ROM, normal capillary refill, other (bilateral LE edema). Absent: tenderness, pedal edema, joint swelling, calf tenderness Right Foot/Toe exam: Present: tenderness (lateral and medial healing wound, no surrounding erythema or purulence) Neurovascular tendon exam: Present: no vascular compromise Back exam: Present: normal inspection Skin exam: Present: warm, dry, intact, normal color. Absent: rash Course Vital Signs 11/16/24 11/16/24 09:37 12:28 Temperature 97.7 F 98.1 F Pulse Rate 75 77 Respiratory 18 18 Rate Blood Pressure 123/69 120/63 O2 Sat by Pulse 99 100 Oximetry Medical Decision Making - Medical Decision Making Was pt. sent in by a medical professional or institution (, PA, APPLIED BEHAVIOR SCIENCE SPECIALIST, urgent care, hospital, or skilled nursing...) When possible be specific @ -Patient was advised by wound center referred to the emergency room for further evaluation of bilateral lower extremity edema. Did you speak to anyone other than the patient for history (EMS, parent, family, police, friend...)? What history was obtained from this source @ -No Did you review nursing and triage notes (agree or disagree)? Why? @ -I reviewed and agree with nursing and triage notes Were old charts reviewed (outside hosp., previous admission, EMS record, old EKG, old radiological studies, urgent care reports/EKG's, skilled nursing records)? Report findings @ -I reviewed patient's surgery note from 11/04/2024 where he underwent debridement of right foot wounds with Dr. Dockery Differential Diagnosis (chest pain, altered mental status, abdominal pain women, abdominal pain men, vaginal bleeding, weakness, fever, dyspnea, syncope, headache, dizziness, GI bleed, back pain, seizure, CVA, palpatations, mental health, musculoskeletal)? @ -Cellulitis, superficial thrombophlebitis, DVT, venous insufficiency, peripheral arterial disease, this list is not all inclusive EKG interpreted by me (3pts min.). @ -none chest xray completed (1pt min.). @ -None done CT interpreted by me (1pt min.). @ -None done U/S interpreted by me (1pt. min.). @ -Duplex ultrasound of bilateral lower extremities potential of thrombus within the popliteal branch vein of the left lower extremity, right leg negative for DVT What testing was considered but not performed or refused? (CT, X-rays, U/S, labs)? Why? @ -None What meds were considered but not given or refused? Why? @ -None Did you discuss the management of the patient with other professionals (professionals i.e. , PA, APPLIED BEHAVIOR SCIENCE SPECIALIST, lab, RT, psych nurse, child protective services social worker, product mgmt dev manager, teacher, military police officer, community case manager)? Give summary @ -No Was smoking cessation discussed for >3mins.? @ -No Was critical care preformed (if so, how long)? @ -No Were there social determinants of health that impacted care today? How? (Homelessness, low income, unemployed, alcoholism, drug addiction, transportation, low edu. Level, literacy, decrease access to med. care, nursing home, rehab)? @ -No Was there de-escalation of care discussed even if they declined (Discuss DNR or withdrawal of care, Hospice)? DNR status @ -No What co-morbidities impacted this encounter? (DM, HTN, Smoking, COPD, CAD, Cancer, CVA, ARF, Chemo, Hep., AIDS, mental health diagnosis, sleep apnea, morbid obesity)? @ -None Was patient admitted / discharged? Hospital course, mention meds given and route, prescriptions, significant lab abnormalities, going to OR and other pertinent info. @ -Discharge. 64-year-old male presenting to emergency room with complaints of bilateral lower extremity edema with referral wound care. Patient noted to have bilateral lower extremity 2+ pitting edema and noted wounds of the right lower leg/foot that are well-appearing with no signs of purulence or surrounding erythema. Patient's EKG is in sinus rhythm. Laboratory testing is unremarkable. Ultrasound potential for thrombus of the left lower extremity, right leg negative for DVT. Pulses are nonpalpable however auscultated with bedside Doppler. Patient is taking Eliquis as scheduled and he is stable for discharge. He is provided with dose of Lasix for fluid retention instructed follow-up as scheduled with wound care and primary care provider in the next 1 to 3 days. Return parameters have been discussed. Case discussed with my attending Dr. Weller Undiagnosed new problem with uncertain prognosis? @ -No Drug Therapy requiring intensive monitoring for toxicity (Heparin, Nitro, Insulin, Cardizem)? @ -No Were any procedures done? @ -No Diagnosis/symptom? @ -Bilateral lower extremity edema Acute, or Chronic, or Acute on Chronic? @ -Acute Uncomplicated (without systemic symptoms) or Complicated (systemic symptoms)? @ -Uncomplicated Side effects of treatment? @ -No Exacerbation, Progression, or Severe Exacerbation? @ -No Poses a threat to life or bodily function? How? (Chest pain, [place], [place], pneumonia, PE, COPD, DKA, ARF, appy, cholecystitis, CVA, Diverticulitis, Homicidal, Suicidal, threat to staff... and all critical care pts) @ -No - Lab Data Result diagrams: 11/16/24 11:15 11/16/24 11:15 Lab Results 11/16/24 11/16/24 11/16/24 Range/Units 11:15 11:15 11:15 WBC 7.92 (4.50-10.00) 10*3/uL RBC 4.30 L (4.40-5.60) 10*6/uL Hgb 13.0 (13.0-17.0) g/dL Hct 38.8 L (39.6-50.0) % MCV 90.2 (80.0-97.0) fL MCH 30.2 (27.0-32.0) pg MCHC 33.5 (32.0-37.0) g/dL Plt Count 170 (140-440) 10*3/uL MPV 8.7 L (9.5-12.2) fL Immature Gran % (Auto) 0.4 % Neutrophils % 78.4 % Lymphocytes % 14.4 % Monocytes % 5.9 % Eosinophils % 0.6 % Basophils % 0.3 % Immature Gran # 0.03 (0.00-0.04) 10*3/uL Neutrophils # 6.21 (1.80-7.70) 10*3/uL Lymphocytes # 1.14 (0.90-5.00) 10*3/uL Monocytes # 0.47 (0.20-1.00) 10*3/uL Eosinophils # 0.05 (0.04-0.35) 10*3/uL Basophils # 0.02 (0.00-0.10) 10*3/uL Sodium 139 (137-145) mmol/L Potassium 3.4 L (3.5-5.1) mmol/L Chloride 102 (98-107) mmol/L Carbon Dioxide 27 (22-30) mmol/L Anion Gap 10 mmol/L BUN 28 H (9-20) mg/dL Creatinine 0.70 (0.66-1.25) mg/dL Est GFR (CKD-EPI)AfAm >90 (>60 ml/min/1.73 sqM) Est GFR (CKD-EPI)NonAf >90 (>60 ml/min/1.73 sqM) Glucose 100 H (74-99) mg/dL Plasma Lactic Acid Shantanu 1.1 (0.7-2.0) mmol/L Calcium 9.9 (8.4-10.2) mg/dL Magnesium 2.1 (1.6-2.3) mg/dL Total Bilirubin 1.2 (0.2-1.3) mg/dL AST 23 (17-59) U/L ALT 17 (4-49) U/L Alkaline Phosphatase 83 (38-126) U/L C-Reactive Protein 1.4 H (<1.0) mg/dL Total Protein 6.6 (6.3-8.2) g/dL Albumin 4.2 (3.5-5.0) g/dL Disposition Clinical Impression: Edema of both lower extremities due to peripheral venous insufficiency Disposition: HOME SELF-CARE Condition: Good Instructions (If sedation given, give patient instructions): Peripheral Vascular Disease (ED), Venous Insufficiency (DC) Additional Instructions: Please return to the Emergency Department if symptoms worsen or any other concerns. Is patient prescribed a controlled substance at d/c from ED?: No Referrals: Mor Timmons MD [Primary Care Provider] - 1-2 days Time of Disposition: 12:16
--- NOTE | 2024-11-16 11:02 | US ---
EXAMINATION TYPE: US venous doppler duplex LE DATE OF EXAM: 11/16/2024 10:47 AM COMPARISON: 03/25/2024 CLINICAL INDICATION: Male, 64 years old with history of pain, swelling; RLE DVT 5 years ago, BL LE sw elling and pain since; On thinners, Former smoker; Patient denies any other signs, symptoms, or relev ant history TECHNIQUE: The lower extremity deep venous system is examined utilizing real time linear array sonog mirlande with graded compression, color doppler sonography, and spectral doppler. SIDE PERFORMED: Bilateral FINDINGS: VESSELS IMAGED: Common Femoral Vein Deep Femoral Vein Greater Saphenous Vein * Femoral Vein Popliteal Vein Small Saphenous Vein * Proximal Calf Veins (* superficial vessels) Bilateral enlarged groin lymph nodes. Right Leg: Negative for DVT, Color Doppler imaging shows patency of the vessels. Spectral waveforms are within normal limits. Left Leg: ? Acute DVT in branch of Popliteal vs limited visualization, Color Doppler imaging shows p atency of the vessels. Spectral waveforms are within normal limits. IMPRESSION: 1. There may be some thrombus within a popliteal branch vein. The main popliteal vein appears normal. 2. Remaining left lower extremity venous structures appear without thrombus. 3. Right Inguinal adenopathy [facility], , 11/16/2024 11:00 AM
[2024-11-16 11:28] LABS: Basophils # (A) 0.02 10*3/uL (0.00-0.10); Basophils % (A) 0.3 %; Eosinophils # (A) 0.05 10*3/uL (0.04-0.35); Eosinophils % (A) 0.6 %; HCT 38.8 % (39.6-50.0); Lymphocytes # (A) 1.14 10*3/uL (0.90-5.00); Lymphocytes % (A) 14.4 %; MCH 30.2 pg (27.0-32.0); MCHC 33.5 g/dL (32.0-37.0); MCV 90.2 fL (80.0-97.0); Mean Platelet Volume 8.7 fL (9.5-12.2); Monocytes # (A) 0.47 10*3/uL (0.20-1.00); Monocytes % (A) 5.9 %; Neutrophils # (A) 6.21 10*3/uL (1.80-7.70); Neutrophils % (A) 78.4 %; Platelet Count 170 10*3/uL (140-440); RDW 13.6 % (11.5-14.5); WBC 7.92 10*3/uL (4.50-10.00)
[2024-11-16 11:45] LABS: ALT 17 U/L (4-49); AST 23 U/L (17-59); African American GFR (CKD) >90 (>60 ml/min/1.73 sqM); Albumin 4.2 g/dL (3.5-5.0); Alkaline Phosphatase 83 U/L (38-126); Anion Gap 10 mmol/L; Blood Urea Nitrogen 28 mg/dL (9-20); C Reactive Protein 1.4 mg/dL (<1.0); Calcium 9.9 mg/dL (8.4-10.2); Carbon Dioxide 27 mmol/L (22-30); Chloride 102 mmol/L (98-107); Glucose 100 mg/dL (74-99); Magnesium 2.1 mg/dL (1.6-2.3); Non-African American GFR(CKD) >90 (>60 ml/min/1.73 sqM); Potassium 3.4 mmol/L (3.5-5.1); Sodium 139 mmol/L (137-145); Total Bilirubin 1.2 mg/dL (0.2-1.3); Total Protein 6.6 g/dL (6.3-8.2)
[2024-11-16 12:29] VITALS: BP 120/63; PULSE 77; TEMP 98.1
[2024-11-16] MEDS: FUROSEMIDE 10 MG/ML 4 ML VIAL IV STA (12:30)
== END 2024-11-16 12:38 | disposition home or self-care (01) ==
LOC: EC 09:23
DX: I87.2 Venous insufficiency (chronic) (peripheral) (principal); Z88.0 Allergy status to penicillin; Z88.2 Allergy status to sulfonamides
CPT/HCPCS: 36415; 80053; 83605; 83735; 85025; 86140; 93970; 99284; 96374; J1938